=== PATIENT | female | born 1955 | race Caucasian/White ===

== ENCOUNTER 2017-07-19 09:27 | Day surgery (SDC) | payer OTHER, SELFPAY ==
[2017-07-19] VITALS (8 sets, daily range): BP systolic 121–139; BP diastolic 62–84; PULSE 54–87; RESP 16–18; TEMP 36.6–37.1; O2SAT 95–99
--- NOTE | 2017-07-19 09:51 | P.PN_ITS ---
[facility] Anesthesia Checklist - Patient Identification Patient Identification: Arm Band, Verbal (Name & ) - Structural Data Admitted From: Home Planned Operative Procedure/s: egd/colon Consent for Planned Operative Procedure(s) Verified: Yes Verified Documents: Surgical Consent - NPO Status Verified Time NPO: 00:00 - Chart Verification Results Verified: CBC, BMP - Additional verifications Patient : No Anesthesia Reactions: No Hx Blood Transfusions: No Blood Transfusion Reaction: No Cephalosporin Allergy: No Previous Colonoscopy: No - Cardiovascular Assessment Heart Sounds: S1 & S2 Pulse Strength: Strong Pulse Rhythm: Regular Peripheral Edema: No - Airway Assessment C-Spine Mobility Assessed: Yes TMJ Mobility Assessed: Yes Dentition: Good Dentition - Neurological Assessment Level of Consciousness: Awake, Alert, Appropriate Hx Seizures: No Numbness or tingling in extremities: No - Anesthesia Plan Anesthesia Risk discussed: Yes Anesthesia Plan: Verified ASA Class: III Anesthesia Type: MAC [facility] Anesthesia HX I have reviewed the patient's past medical history: Yes Medical History: Reports:: Anxiety, Gastroesophageal Reflux Disease(GERD), Heart Murmur, Hyperlipidemia, Hypertension (on meds) Denies:: Diabetes Mellitus Type 1, Diabetes Mellitus Type 2, Internal Pacemaker, Lung Disease, Seizures Other Surgeries: Yes: Appendectomy, Hysterectomy-Partial. No: Pacemaker Amputation: No Fractures: No *Family Hx:: Unable to obtain
--- NOTE | 2017-07-19 10:29 | SUR.OPER ---
Addendum entered by Ina Perez RN 07/19/17 10:31: CORRECTION; PT WILL BE PROCEEDING WITH COLONOSCOPY. Original Note: PT COULD NOT TOLERATE COLON PREP. PT WANTS TO PROCEED WITH EGD, BUT CANCEL COLONOSCOPY.
--- NOTE | 2017-07-19 10:31 | HMH.PROC ---
[facility] Procedure Note Procedure Note:: Upper Endoscopy Procedure Report: Esophagogastroduodenoscopy with cold biopsies Endoscopost: Joey Price II, MD Referring Physician: Syd Newman MD Date of Procedure: July 19, 2017 Equipment: Olympus GIF 180 standard upper endoscope Sedation: MAC sedation Indications: Mrs. Chisholm is a 62-year-old female with long-standing GERD/reflux and has been on pantoprazole. She underwent Venu fundoplication for a large hiatal hernia in September 2007 (Pietro Tineo MD). The patient has had several upper endoscopies in the past and her last endoscopy was on June 03, 2015 at which time she was found to have a recurrent 3 cm hiatal hernia with grade B reflux esophagitis and esophageal dysmotility. The patient does report epigastric abdominal burning discomfort, belching, bloating and early satiety. She reports no melena. Procedure: Prior to the procedure, a history and physical exam was performed, and patient's medications and allergies were reviewed. The risks, benefits and alternatives of the sedation and procedure were discussed with the patient. All questions were answered and informed consent was obtained. The patient was brought to the procedure room. Patient identification and proposed procedure were verified by the physician and the nurse. The patient was placed in a left lateral decubitus position and the scope was passed under direct vision. Throughout the procedure, the patient's blood pressure, pulse, and oxygen saturations were monitored continuously. The upper GI endoscopy was accomplished without difficulty. The patient tolerated the procedure well. Findings: The scope was passed directly into the upper esophagus and advanced to the third portion of the duodenum. The post bulbar duodenum and duodenal bulb were normal with normal mucosa and conniventes. The ampulla appeared normal. The scope was withdrawn through a normal duodenal bulb and pylorus into the stomach. There was bile reflux with mild linear erythema of the antrum and body consistent with mild linear reactive gastritis. There were a couple of small fundic gland polyps 1 of which was removed via cold biopsy. The remainder of the antrum, body and fundus of the stomach were grossly normal. Upon retroflexion there was some recurrence of 3 cm hiatal hernia with evidence of prior fundoplication. 2 biopsies were taken in the antrum and along the lesser curvature for histology. The scope was then withdrawn into the esophagus. There was still remaining with 1 very short tongue of salmon colored mucosa that was biopsied to rule out Bass's esophagus. There was no reflux esophagitis. There were tertiary contractions and evidence of moderate esophageal dysmotility. The remainder of the esophageal mucosa was normal. Impression: 1. Nonerosive GERD with moderate esophageal dysmotility and recurrent 3 cm hiatal hernia (evidence of prior fundoplication) 2. Bile reflux with mild linear reactive gastritis 3. 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 I would switch to omeprazole 40 Milias p.o. daily because of the possibility of tachyphylaxis. I would also add a promotility medication possibly fiber bowel regimen. Follow up the biopsies. I will proceed with screening/surveillance colonoscopy.
--- NOTE | 2017-07-19 10:42 | P.PCN_ITS ---
[facility] Procedure Note Procedure Note:: Upper Endoscopy Procedure Report: Esophagogastroduodenoscopy with cold biopsies Endoscopost: Joey Price II, MD Referring Physician: Syd Newman MD Date of Procedure: July 19, 2017 Equipment: Olympus GIF 180 standard upper endoscope Sedation: MAC sedation Indications: Mrs. Chisholm is a 62-year-old female with long-standing GERD/ reflux and has been on pantoprazole. She underwent Venu fundoplication for a large hiatal hernia in September 2007 (Pietro Tineo MD). The patient has had several upper endoscopies in the past and her last endoscopy was on May at which time she was found to have a recurrent 3 cm hiatal hernia with grade B reflux esophagitis and esophageal dysmotility. The patient does report epigastric abdominal burning discomfort, belching, bloating and early satiety. She reports no melena. Procedure: Prior to the procedure, a history and physical exam was performed, and patient' s medications and allergies were reviewed. The risks, benefits and alternatives of the sedation and procedure were discussed with the patient. All questions were answered and informed consent was obtained. The patient was brought to the procedure room. Patient identification and proposed procedure were verified by the physician and the nurse. The patient was placed in a left lateral decubitus position and the scope was passed under direct vision. Throughout the procedure, the patient's blood pressure, pulse, and oxygen saturations were monitored continuously. The upper GI endoscopy was accomplished without difficulty. The patient tolerated the procedure well. Findings: The scope was passed directly into the upper esophagus and advanced to the third portion of the duodenum. The post bulbar duodenum and duodenal bulb were normal with normal mucosa and conniventes. The ampulla appeared normal. The scope was withdrawn through a normal duodenal bulb and pylorus into the stomach. There was bile reflux with mild linear erythema of the antrum and body consistent with mild linear reactive gastritis. There were a couple of small fundic gland polyps 1 of which was removed via cold biopsy. The remainder of the antrum, body and fundus of the stomach were grossly normal. Upon retroflexion there was some recurrence of 3 cm hiatal hernia with evidence of prior fundoplication. 2 biopsies were taken in the antrum and along the lesser curvature for histology. The scope was then withdrawn into the esophagus. There was still remaining with 1 very short tongue of salmon colored mucosa that was biopsied to rule out Bass's esophagus. There was no reflux esophagitis. There were tertiary contractions and evidence of moderate esophageal dysmotility. The remainder of the esophageal mucosa was normal. Impression: 1. Nonerosive GERD with moderate esophageal dysmotility and recurrent 3 cm hiatal hernia (evidence of prior fundoplication) 2. Bile reflux with mild linear reactive gastritis 3. 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 I would switch to omeprazole 40 Milias p.o. daily because of the possibility of tachyphylaxis. I would also add a promotility medication possibly fiber bowel regimen. Follow up the biopsies. I will proceed with screening/surveillance colonoscopy.
--- NOTE | 2017-07-19 11:14 | P.PCN_ITS ---
[facility] Procedure Note Procedure Note:: Colonoscopy Procedure Report: Colonoscopy with submucosal injection of Eleview, snare cautery and cold snare polypectomy and Endo Clip placement Endoscopist: Joey Price II, MD Referring physician: Syd Newman M.D. Date of Procedure: July 19, 2017 Equipment: Olympus 180 variable stiffness pediatric colonoscope Sedation: MAC sedation Indication: Mrs. Chisholm is a 62-year-old female who is here for follow-up screening/surveillance colonoscopy. The patient did have a colonoscopy in 2006 showing 3 small adenomatous colon polyps which were removed. Her last colonoscopy in May 2011 revealed a splenic flexure polyp that was sessile and Alicja ink was utilized. This was measured at 9 mm and was a tubular adenoma. The patient does have a history of dyspepsia and reflux. She reports no abdominal pain, weight loss, change in her bowel habits or rectal bleeding. She reports no family history of colon cancer. Procedure: Prior to the procedure, a history and physical exam was performed, and patient' s medications and allergies were reviewed. The risks, benefits and alternatives of the sedation and procedure were discussed with the patient. All questions were answered and informed consent was obtained. The patient was brought to the procedure room. Patient identification and proposed procedure were verified by the physician and the nurse. The patient was placed in a left lateral decubitus position and the scope was passed under direct vision. Throughout the procedure, the patient's blood pressure, pulse, and oxygen saturations were monitored continuously. The colonoscopy was accomplished without difficulty. The patient tolerated the procedure well. Findings: On digital rectal examination there was normal rectal tone. There were no external hemorrhoids. The colonoscope was introduced through the anal canal to the rectum and advanced to the cecum. The ileocecal valve and appendiceal orifice were identified. The scope was advanced a short distance into the ileum which appeared grossly normal. The scope was then withdrawn into the colon. The cecum, ascending and transverse colon and mucosa were grossly normal. In the transverse colon near the splenic flexure was a sessile 19-20 mm polyp that was granular and laterally spreading sessile polyp. This was raised using Eleview at approximately 10 cc. Next, snare cautery was utilized to remove the vast majority and then the Exacto snare was used to remove the remaining in piecemeal. The post polypectomy site was then closed using 2 endoclips. There was one additional sigmoid polyp removed via cold snare polypectomy. There were a few mildly scattered scattered diverticuli throughout the descending and sigmoid colon (LEFT colon). The rectum itself was normal. Upon retroflexion within the rectum there were grade 1 internal hemorrhoids. Impression: 1. Sessile 20 mm laterally spreading granular transverse colon polyp status post removal 2. Diminutive sigmoid polyp 3. Mild left-sided diverticulosis 4. Grade 1 internal hemorrhoids Plan: I will follow up the polyp histology and recommend repeat screening/ surveillance colonoscopy again in 2-3 years based on the histology. I would encourage fiber supplementation on a long-term daily maintenance basis.
[2017-07-19 12:48] LABS: Basophils # 0.1 K/mm3 (0-0.2); Basophils % 1.1 % (0.1-2.0); Eosinophils # 0.3 K/mm3 (0.0-0.4); Eosinophils % 3.3 % (0.1-12.0); Hematocrit 40.1 % (37.0-47.0); Lymphocytes # 1.9 K/mm3 (0.7-4.5); Lymphocytes % 25.2 K/mm3 (10-50); Mean Corpuscular HGB Conc 32.4 g/dL (31.8-35.4); Mean Corpuscular Hemoglobin 26.6 pg (27.0-31.2); Mean Corpuscular Volume 82.1 fl (81-99); Mean Platelet Volume 7.6 fl (7.4-10.4); Monocytes # 0.4 K/mm3 (0.1-1.0); Monocytes % 4.6 % (1.7-9.3); Neutrophils # 5.1 K/mm3 (1.8-7.8); Neutrophils % 65.8 % (37.0-80.0); Platelet Count 396 K/mm3 (142-424); Red Blood Count 4.88 M/mm3 (4.20-5.40); Red Cell Distribution Width 14.7 % (11.5-17.5); White Blood Count 7.7 K/mm3 (4.8-10.8)
[2017-07-19 12:56] LABS: Ammonia 6 umol/L (19-54)
[2017-07-19 13:10] LABS: Alanine Aminotransferase 33 U/L (12-78); Albumin Level 3.7 gm/dL (3.4-5.0); Albumin/Globulin Ratio 0.9 (1.1-1.8); Alkaline Phosphatase 93 U/L (46-116); Anion Gap 14.1 mEq/L (5-15); Aspartate Amino Transferase 20 U/L (15-37); Bilirubin,Total 0.6 mg/dL (0.2-1.0); Blood Urea Nitrogen 5 mg/dL (7-18); Calcium 8.6 mg/dL (8.5-10.1); Carbon Dioxide 28 mmol/L (21.0-32.0); Chloride 106 mmol/L (98-107); Creatinine Clearance Estimated 73 mL/min (0-300); Creatinine,Serum 0.58 mg/dL (0.55-1.02); Estimated Glomerular Filt Rate 105 ml/min (>60); Ferritin 60 ng/mL (8-388); GFR (African American) 127 ML/MIN (>60); Globulin 3.9 gm/dl (1.3-3.2); Glucose 91 mg/dL (74-106); Potassium 3.1 mmoL/L (3.5-5.1); Sodium 145 mmol/L (136-145); Total Protein,Serum 7.6 gm/dL (6.4-8.2)
[2017-07-20 06:14] LABS: Iron 51 ug/dL (27-139); UIBC 278 ug/dL (118-369)
[2017-07-20 07:17] LABS: Hep A Ab, IgM Negative (Negative); Hep B Core Ab, Total Negative (Negative); Hepatitis B Core Antibody IgM Negative (Negative); Hepatitis B Surface Antigen Negative (Negative)
[2017-07-20 08:22] LABS: Alpha-1-Antitrypsin 128 mg/dL (90-200); Immunoglobulin A, Qn 607 mg/dL (87-352); Immunoglobulin G, Qn 736 mg/dL (700-1600)
[2017-07-20 10:55] LABS: Iron Saturation 16 % (15-55)
[2017-07-20 10:56] LABS: Hep A Ab, Total Negative (Negative); Hep B Surface Ab, Qual Non Reactive (.); Hepatitis C Antibody 0.1 s/co ratio (0.0-0.9); Immunoglobulin M, Qn 142 mg/dL (26-217)
[2017-07-20 16:17] LABS: Actin (Smooth Muscle) Antibody 6 Units (0-19); Angiotensin Converting Enzyme 27 U/L (14-82); Mitochondrial (M2) Antibody <20.0 Units (0.0-20.0)
[2017-07-20 19:19] LABS: Antinuclear Antibodies, IFA Positive (.)
[2017-07-21 06:20] LABS: ALT (SGPT) P5P 21 IU/L (0-40); Alpha 2-Macroglobulins, Qn 169 mg/dL (110-276); Apolipoprotein A-1 149 mg/dL (116-209); Bilirubin, Total 0.4 mg/dL (0.0-1.2); Fibrosis Score 0.11 (0.00-0.21); GGT 22 IU/L (0-60); Haptoglobin 205 mg/dL (34-200); Necroinflammat Activity Grade A0-No activity (.); Necroinflammat Activity Score 0.07 (0.00-0.17)
== END 2017-07-19 12:40 | disposition home or self-care (01) ==
LOC: OUTP 09:31
PROVIDERS: PCP Internal Medicine; Visit Provider Internal Medicine Gastroenterology
PROC: 0DJ08ZZ Inspection of Upper Intestinal Tract, Via Natural or Artificial Opening Endoscopic (ICD-10-PCS; CPT 43235; principal; 2017-07-19 10:30)
DX: Z12.11 Encounter for screening for malignant neoplasm of colon (principal); K64.0 First degree hemorrhoids; K57.30 Diverticulosis of large intestine without perforation or abscess without bleeding; K63.5 Polyp of colon; K21.9 Gastro-esophageal reflux disease without esophagitis; K22.4 Dyskinesia of esophagus; K44.9 Diaphragmatic hernia without obstruction or gangrene; K29.70 Gastritis, unspecified, without bleeding; K31.7 Polyp of stomach and duodenum; Z87.19 Personal history of other diseases of the digestive system; Z86.010 Personal history of colon polyps
CPT/HCPCS: 43239; 45381; 45380; 36415; 80053; 80074; 82104; 82140; 82164; 82728; 82784; 83550; 85025; 86038; 86255; 86256; 86704; 86706; 86708

== ENCOUNTER → 2020-08-03 11:58 | Outpatient (CLI) | payer MEDICARE, SELFPAY ==
[2020-08-03 14:15] LABS: Coronavirus 19 IgG Antibody Positive (Negative); Coronavirus 19 IgM Antibody Negative (Negative)
== END ==
PROVIDERS: Visit Provider Internal Medicine Gastroenterology
DX: Z01.818 Encounter for other preprocedural examination (principal); Z20.822 Contact with and (suspected) exposure to COVID-19; Z86.16 Personal history of COVID-19; Z12.11 Encounter for screening for malignant neoplasm of colon
CPT/HCPCS: 36415; 86328

== ENCOUNTER 2020-08-05 06:58 | Day surgery (SDC) | payer MEDICARE, OTHER, SELFPAY ==
[2020-08-05] VITALS (7 sets, daily range): BP systolic 104–144; BP diastolic 62–86; PULSE 53–73; RESP 18; TEMP 36.4–36.9; O2SAT 93–98
--- NOTE | 2020-08-05 08:20 | HMH.PROC ---
[facility] Procedure Note Procedure Note:: Colonoscopy Procedure Report: Colonoscopy with cold snare polypectomy Endoscopist: Joey Price II, MD Referring physician: Syd Newman M.D. Date of Procedure: August 05, 2020 Equipment: Olympus 180 variable stiffness pediatric colonoscope Sedation: MAC sedation Indication: Mrs. Chisholm is a 65-year-old female who is here for follow-up screening/surveillance colonoscopy secondary to a personal history of colon polyps. The patient's last colonoscopy was June 2017 at which time she had a 20 mm laterally spreading granular tubular adenoma. I did recommend 2-year surveillance interval. The patient does have some history of functional dyspepsia. She has had intermittent chronic loose stools. She reports no rectal bleeding, abdominal pain, weight loss or change in bowel habits. She reports no family history of colon cancer. Procedure: Prior to the procedure, a history and physical exam was performed, and patient's medications and allergies were reviewed. The risks, benefits and alternatives of the sedation and procedure were discussed with the patient. All questions were answered and informed consent was obtained. The patient was brought to the procedure room. Patient identification and proposed procedure were verified by the physician and the nurse. The patient was placed in a left lateral decubitus position and the scope was passed under direct vision. Throughout the procedure, the patient's blood pressure, pulse, and oxygen saturations were monitored continuously. The colonoscopy was accomplished without difficulty. The patient tolerated the procedure well. Findings: On digital rectal examination there was normal rectal tone. There were no external hemorrhoids. The colonoscope was introduced through the anal canal to the rectum and advanced to the cecum. The ileocecal valve and appendiceal orifice were identified. The scope was advanced a short distance into the ileum which appeared grossly normal. The scope was then withdrawn into the colon. The cecum, ascending and transverse colon and mucosa were grossly normal. At the splenic flexure (in the descending colon) there was a 7 to 8 mm residual polyp with fibrosis in this region from prior polypectomy. This polyp was removed via cold snare polypectomy. There was a second 5 mm polyp in the sigmoid colon removed via cold snare polypectomy. There were very mildly scattered diverticuli throughout the descending and sigmoid colon (LEFT colon). The rectum itself was normal. Upon retroflexion within the rectum there were grade 1-2 internal hemorrhoids. The preparation was excellent throughout with Cornelius Preparation Score of 9. The cecal time was 12 minutes. Impression: 1. Colonic polyps x2 2. Mild left-sided diverticulosis 3. Grade 1-2 internal hemorrhoids Plan: Based upon the patient's history of advanced adenomatous polyps, I would continue surveillance at a 5-year interval. I would encourage bulk fiber supplementation (FiberCon 2 tablets p.o. twice daily).
--- NOTE | 2020-08-05 09:00 | P.PN_ITS ---
[facility] Anesthesia Checklist - Patient Identification Patient Identification: Arm Band - Structural Data Admitted From: Home Planned Operative Procedure/s: colonoscopy Consent for Planned Operative Procedure(s) Verified: Yes Verified Documents: Surgical Consent, History and Physical - NPO Status Verified Time NPO: 00:00 - Additional verifications Anesthesia Reactions: No Hx Blood Transfusions: No Blood Transfusion Reaction: No - Airway Assessment C-Spine Mobility Assessed: Yes (mp2) TMJ Mobility Assessed: Yes Dentition: Good Dentition - Neurological Assessment Level of Consciousness: Awake, Alert - Anesthesia Plan Anesthesia Risk discussed: Yes Anesthesia Plan: Verified ASA Class: III Anesthesia Type: MAC [facility] History I have reviewed the patient's past medical history: Yes Medical History: Reports:: Anxiety, Gastroesophageal Reflux Disease(GERD), Heart Murmur, Hyperlipidemia, Hypertension Denies:: Cancer, Diabetes Mellitus Type 1, Diabetes Mellitus Type 2, Internal Pacemaker, Lung Disease, MRSA, Seizures *Have you ever received a pneumonia vaccine?: Yes *Have you received a flu vaccine this season?: Yes Other Medical History: Denies: Blood Transfusion Reaction Anesthesia experience/problems:: nac Other Surgeries: Yes: Appendectomy, Cardiac Catheterization, Hysterectomy- Partial. No: Pacemaker Amputation: No Fractures: No - *Social History Last grade of school completed: Some college Smoking Status: Never smoker Alcohol Intake: current Alcohol Intake Frequency:: a few times a month Substance Use Type: denies use *Occupational Status:: employed Housing: house Household Members: spouse *Travel in the last 8 weeks: None - Psychiatric History Pschychiatric History:: Reports:: Anxiety Family Hx:: Unable to obtain
== END 2020-08-05 09:25 | disposition home or self-care (01) ==
LOC: OUTP 07:02
PROVIDERS: PCP Internal Medicine; Visit Provider Internal Medicine Gastroenterology
PROC: 0DJD8ZZ Inspection of Lower Intestinal Tract, Via Natural or Artificial Opening Endoscopic (ICD-10-PCS; CPT 45378; principal; 2020-08-05 08:00)
DX: Z12.11 Encounter for screening for malignant neoplasm of colon (principal); K63.5 Polyp of colon; K57.30 Diverticulosis of large intestine without perforation or abscess without bleeding; K64.0 First degree hemorrhoids; I10 Essential (primary) hypertension; E78.5 Hyperlipidemia, unspecified; K21.9 Gastro-esophageal reflux disease without esophagitis; Z80.9 Family history of malignant neoplasm, unspecified; Z82.49 Family history of ischemic heart disease and other diseases of the circulatory system; Z88.2 Allergy status to sulfonamides
CPT/HCPCS: 45385; 88305

== ENCOUNTER 2022-06-19 11:48 | Emergency (ER) | payer MEDICARE, OTHER, SELFPAY ==
[2022-06-19 14:07] VITALS: BP 138/94; PULSE 87; RESP 16; TEMP 36.8; O2SAT 97; BMI 27.8
--- NOTE | 2022-06-19 14:11 | EXP.UTC ---
Discharge Plan Disposition Patient Disposition: Home, Self-Care Condition: Good Prescriptions Prescriptions: New ondansetron 4 mg tablet,disintegrating 4 mg PO Q8H PRN (Reason: nausea and vomiting) Qty: 10 0RF No Action atorvastatin 40 MG tablet 40 mg PO HS isosorbide mononitrate 120 MG tablet extended release 24 hr 30 mg PO DAILY amlodipine [Norvasc] 10 MG tablet 10 mg PO HS aspirin 81 MG tablet,chewable 81 mg PO DAILY escitalopram oxalate 20 MG tablet 20 mg PO DAILY calcium carbonate-vitamin D3 1 EACH tablet 1 ea PO DAILY omeprazole 40 MG capsule,delayed release(DR/EC) 40 mg PO DAILY metoclopramide HCl 5 MG tablet 5 mg PO DAILY Referrals Follow up/Referrals: Syd Newman [Primary Care Provider] - See instructions Activity Restrictions/Add. Instructions Additional Instructions/Restrictions: Drink extra fluids with and between meals. If you have difficulty drinking, try very small amounts of water or suck on ice chips. ? Avoid fruit juices, as these do not replace minerals and can actually increase diarrhea. ? Children and adults can use sports drinks to replenish electrolytes. Younger children and infants should use products formulated for children, like oral rehydration solutions. ? Eat food in small amounts and let your stomach recover. ? Get lots of rest. You may feel tired or weak. ? No greasy or fried foods for the next 24-48 hours BRAT diet Bananas Rice Apples and [place] ? Make sure to drink plenty of liquids ? Return if needed ? Straight to ER if any life threatening symptoms ? Zofran as prescribed ? Follow up with family doctor in the next 48-72 hours if no improvement or any worsening of symptoms Clinical Impressions Clinical Impression: Nausea and vomiting Qualifiers: Vomiting type: unspecified Qualified Code(s): R11.2 - Nausea with vomiting, unspecified Instructions Patient Instructions: Ondansetron, Nausea and Vomiting-Adult, Diarrhea Discharge ED Provider: Walker Bell [facility] HPI General Stated complaint: Vomiting,headache Mode of Arrival: Ambulatory Source of Information: Patient Limitations: No Limitations Time Seen by Provider: 06/19/22 14:11 Description of Symptoms (Recalled from Triage Doc. by RN): ot comes in with c/o vomitting diarrhea headache that began last night. HEENT Symptoms (Recalled from RN notes): Yes Resp Symptoms (Recalled from RN notes): No Skin Symptoms (Recalled from RN notes): No MS Symptoms (Recalled from RN notes): No Functional Status (Recalled from RN notes): n/a History of Present Illness Provider Complaint: Patient states that she thinks she either has stomach bug or food poisoning States that last night she eat some left over vegetables and then she started with vomiting and diarrhea State that diarrhea has got a little better but she has continued to have vomiting States that she has a little headache but gets that sometimes when she vomits States that has hx of hernia and they dont want her vomiting so she came in to get something to stop the vomiting before she started having issues with that Related Data Home Medications Medication Instructions Recorded Confirmed amlodipine 10 mg tablet (Norvasc) 10 mg PO HS blood pressure 07/16/17 08/05/20 aspirin 81 mg chewable tablet 81 mg PO DAILY heart healthy 07/16/17 08/05/20 atorvastatin 40 mg tablet 40 mg PO HS Cholesterol 07/16/17 08/05/20 calcium carbonate 1,000 mg-vitamin 1 ea PO DAILY Supplement 07/16/17 08/05/20 D3 20 mcg (800 unit) tablet escitalopram oxalate 20 mg tablet 20 mg PO DAILY Anxiety 07/16/17 08/05/20 isosorbide mononitrate 120 mg 30 mg PO DAILY blood pressure 07/16/17 08/05/20 tablet,extended release 24 hr metoclopramide HCl 5 mg tablet 5 mg PO DAILY Nausea & vomiting 07/30/20 08/05/20 omeprazole 40 mg capsule,delayed 40 mg PO DAILY GERD 07/30/20 08/05/20 r
[2022-06-19 14:23] LABS: UTC Influenza A Antigen Negative (Negative); UTC Influenza B Antigen Negative (Negative)
[2022-06-19 15:23] VITALS: BP 138/94; PULSE 87; RESP 16; TEMP 36.8
== END 2022-06-19 15:25 | disposition home or self-care (01) ==
PROVIDERS: Nurse Practitioner; Emergency Provider Emergency Medicine; PCP Internal Medicine
DX: R11.2 Nausea with vomiting, unspecified (principal)
CPT/HCPCS: 87804; 99212; G0463

== ENCOUNTER 2022-10-16 15:25 | Emergency (ER) | payer MEDICARE, OTHER, SELFPAY ==
[2022-10-16 15:26] VITALS: BP 139/86; PULSE 69; RESP 17; TEMP 37.1; O2SAT 98; BMI 29.0
--- NOTE | 2022-10-16 15:48 | EXP.UTC ---
Discharge Plan Disposition Patient Disposition: Home, Self-Care Condition: Good Prescriptions Prescriptions: New azithromycin [Zithromax Z-Neri] 250 mg tablet See Rx Instructions .ROUTE .COMPLEX 5 Days Qty: 6 0RF Rx Instructions: For 250 mg dose pack: take 500 mg today (day 1), then 250 mg for 4 days (days 2-5) methylprednisolone [Medrol (Neri)] 4 mg tablets,dose pack See Rx Instructions .Route .COMPLEX 6 Days Qty: 21 0RF Rx Instructions: taper pack; No Action atorvastatin 40 MG tablet 40 mg PO HS isosorbide mononitrate 120 MG tablet extended release 24 hr 30 mg PO DAILY amlodipine [Norvasc] 10 MG tablet 10 mg PO HS aspirin 81 MG tablet,chewable 81 mg PO DAILY escitalopram oxalate 20 MG tablet 20 mg PO DAILY calcium carbonate-vitamin D3 1 EACH tablet 1 ea PO DAILY omeprazole 40 MG capsule,delayed release(DR/EC) 40 mg PO DAILY Referrals Follow up/Referrals: Syd Newman [Primary Care Provider] - See instructions Activity Restrictions/Add. Instructions Additional Instructions/Restrictions: *Monitor Temp, Over the counter Motrin or Tylenol as directed/as needed Tylenol every 4 hours and Motrin every 6 hours (as long as your family doctor has told you that you can take it) for fever or pain. and straight to ER if unable to lower temp less than 101.0 after medication given *Warm salt water gargles may help to soothe the throat *Throat Lozenges? *Warm fluids like tea with honey may help to soothe the throat? *Sleep elevated *Humidifier/Vaporizer Take medication as prescribed Your throat swab was sent for culture. Those results are typically sent to your primary care. Be sure to follow up in 2-3 days with your family doctor/primary care physician if no improvement so they can review those result and treat if necessary. If you don?t have a primary care doctor, I recommend you get one but in the mean time, you will have to return to a walk in clinic Follow up IMMEDIATELY for new or worsening symptoms or no Noticeable improvement over the next 48-72 hours. 911 for difficulty breathing or swallowing Clinical Impressions Clinical Impression: Sinusitis Instructions Patient Instructions: DI for Sinusitis, Sinusitis Discharge ED Provider: Richelle York [facility] [place] HPI General Stated complaint: sore throat Mode of Arrival: Ambulatory Source of Information: Patient Limitations: No Limitations Time Seen by Provider: 10/16/22 15:48 Description of Symptoms (Recalled from Triage Doc. by RN): sore throat, congestion, KEBEDE, bilateral ear pain HEENT Symptoms (Recalled from RN notes): Yes Resp Symptoms (Recalled from RN notes): No Skin Symptoms (Recalled from RN notes): No MS Symptoms (Recalled from RN notes): No Functional Status (Recalled from RN notes): n/a History of Present Illness Provider Complaint: Patient states that she has been having sinus pain and pressure for close to a week, States that now she is having bilateral ear pain, and sore throat also States that her throat was hurting pretty bad and she was worried that she may have strep throat so she came in to get checked Related Data Home Medications Medication Instructions Recorded Confirmed amlodipine 10 mg tablet (Norvasc) 10 mg PO HS blood pressure 07/16/17 10/16/22 aspirin 81 mg chewable tablet 81 mg PO DAILY heart healthy 07/16/17 10/16/22 atorvastatin 40 mg tablet 40 mg PO HS Cholesterol 07/16/17 10/16/22 calcium carbonate 1,000 mg-vitamin 1 ea PO DAILY Supplement 07/16/17 10/16/22 D3 20 mcg (800 unit) tablet escitalopram oxalate 20 mg tablet 20 mg PO DAILY Anxiety 07/16/17 10/16/22 isosorbide mononitrate 120 mg 30 mg PO DAILY blood pressure 07/16/17 10/16/22 tablet,extended release 24 hr omeprazole 40 mg capsule,delayed 40 mg PO DAILY GERD 07/30/20 10/16/22 release Previous Rx's Medication Instructions Recorded azithromycin 250 mg tablet See Rx In
[2022-10-16 15:59] LABS: UTC Strep Screen (Rapid) Negative (Negative)
[2022-10-16 16:16] VITALS: BP 139/86; PULSE 69; RESP 17; TEMP 37.1; O2SAT 97
== END 2022-10-16 16:17 | disposition home or self-care (01) ==
PROVIDERS: Emergency Provider Nurse Practitioner; PCP Internal Medicine
DX: J01.90 Acute sinusitis, unspecified (principal); H92.03 Otalgia, bilateral; J02.9 Acute pharyngitis, unspecified
CPT/HCPCS: 87880; 99212; 99214; G0463

== ENCOUNTER 2024-07-18 16:27 | Emergency (ER) | payer MEDICARE, OTHER, SELFPAY ==
[2024-07-18 16:28] VITALS: BP 159/90; PULSE 76; RESP 16; TEMP 36.6; O2SAT 97; BMI 28.3
[2024-07-18 16:34] VITALS: BP 159/90; PULSE 76; O2SAT 95
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
--- NOTE | 2024-07-18 16:51 | PC.NURSE ---
pt gone to ct via stretcher
--- NOTE | 2024-07-18 16:51 | PC.NURSE ---
PT TO CT
--- NOTE | 2024-07-18 16:59 | PC.NURSE ---
pt arrived back to room from ct
--- NOTE | 2024-07-18 17:01 | PC.NURSE ---
PT RETURNED FROM CT
--- NOTE | 2024-07-18 17:20 | PC.NURSE ---
DR BEE AT BEDSIDE TO UPDATE PT AND FAMILY
[2024-07-18 17:30] VITALS: BP 165/109; PULSE 59; O2SAT 96
[2024-07-18] MEDS: BUTALB/ACETAMINOPHEN/CAFFEINE 50MG/325MG/40MG TAB 2 EACH PO (17:31)
[2024-07-18] MEDS: METOCLOPRAMIDE 5MG TABLET 5 MG PO (17:31)
[2024-07-18] MEDS: ONDANSETRON 4MG ODT 4 MG SL (17:33)
[2024-07-18 18:00] VITALS: BP 168/86; PULSE 55; O2SAT 97
[2024-07-18 18:31] VITALS: BP 155/79; PULSE 57; O2SAT 93
--- NOTE | 2024-07-18 18:33 | PC.NURSE ---
PT REPORTS SHE IS UTD ON TDAP, DECLINES AT THIS TIME
[2024-07-18 18:38] VITALS: BP 155/79; PULSE 56; RESP 16; TEMP 36.6; O2SAT 99
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
== END 2024-07-18 18:40 | disposition home or self-care (01) ==
PROVIDERS: Emergency Provider Emergency Medicine; PCP Internal Medicine
DX: S01.01XA Laceration without foreign body of scalp, initial encounter (principal); S06.0XAA Concussion with loss of consciousness status unknown, initial encounter; X58.XXXA Exposure to other specified factors, initial encounter; R91.1 Solitary pulmonary nodule; R42 Dizziness and giddiness; R11.0 Nausea; Z23 Encounter for immunization
CPT/HCPCS: 12001; 70450; 72125; 90471; 90714; 90715; 99285; Q0162

== ENCOUNTER 2025-05-24 13:39 | Outpatient (CLI) | payer MEDICARE, OTHER, SELFPAY ==
[2025-05-24 20:48] LABS: Coronavirus 19, PCR Not Detected (NotDetected); Influenza A, PCR Not Detected (NotDetected); Influenza B, PCR Not Detected (NotDetected)
--- OUTSIDE RECORDS SUMMARY | 2025-05-27 13:42 | XMS_ITS | Clinical Summary ---
Author Organization Healthcare Address [address] [place] [address] Care Team Providers Care Pull Over Name Role Phone Kwesi Powell MD Primary Care Provider [phone] Immunizations Immunization Administration Dates Next Due Influenza, seasonal, injectable 06/20/2012 Family History Medical History Relation Name Comments CABG Brother 1 Coronary artery disease Brother 2 Heart attack Brother 3 CABG Father Coronary artery disease Father Heart attack Father Atrial fibrillation Mother Relation Name Status Comments Brother 1 Brother 2 Brother 3 Father Mother Social History Tobacco Use Types Packs/Day Years Used Date Smoking Tobacco: Never Alcohol Use Standard Drinks/Week Comments No 0 (1 standard drink = 0.6 oz pur e alcohol) Comments Unknown Sex and Gender Information Value Date Recorded Sex Assigned at Not on file Legal Sex Female 6:00 PM EDT Gender Identity Not on file Sexual Orientation Not on file Last Filed Vital Signs Vital Sign Reading Time Taken Comments Blood Pressure - - Pulse - - Temperature - - Respiratory Rate - - Oxygen Saturation - - Inhaled Oxygen Concentration - - Weight 79.8 kg (175 lb 14.8 oz) 06/10/2016 1:29 PM EST Height 162.6 cm (5' 4 ) 06/10/2016 1:29 PM EST Body Mass Index 30.2 06/10/2016 1:29 PM EST Plan of Treatment Not on file Care Teams Pull Over Relationship Specialty Start Date End Date Kwesi Powell MD [address] [place] [id number] PCP - General 11/01/20
--- OUTSIDE RECORDS SUMMARY | 2025-05-27 13:42 | XMS_ITS ---
Author Organization Unknown ENCOUNTERS Encounter Performer Location Date Diagnosis Diagnosis Status Pre Admit [facility] [address] [place] [address] [id number] Emergency [facility] [address] [place] [address] [id number] [facility] Richelle [facility] [place] [address] [place] [address] [phone] [facility] Walker [facility] [place] [address] [place] [address] [phone] [facility] *Note: Encounters from your own facility or health system may be excluded. Allergies, Adverse Reactions, Alerts Allergen Type Severity Identification Date ciprofloxacin drug allergy 0 20170719 Sulfa (Sulfonamide Antibiotics) drug allergy 0 [id number] amoxicillin drug allergy 1 [id number] procaine drug allergy 0 [id number] Medications Name Date Quantity Days Supplied GPI Number
--- OUTSIDE RECORDS SUMMARY | 2025-05-27 13:42 | XMS_ITS | Data Portability ---
Author Organization MARIANA Parminder Prather c[facility] CLOSED Address [address] [facility] [address] [place] [address] Care Team Providers Care Pad Machine Feeder Name Role Phone SRI NEWMAN Primary Care Provider DAVID HANKINS Machine Binder Stripper Assessment No assessment recorded. Plan of Treatment Reminders Order Date Submit Date Provider Last Modified By Organization Details Last Modified Time Details Appointments MEDICARE WELLNESS VISIT 2025 02:00P Luis M NEWMAN MD Not available Not available Not available RECHECK 2025 01:30P Luis M HANKINS MACHINE III COREMAKER Not available Not available Not available Lab glycohemo globin, total, blood 2024 026 [facility], [address] [place] [address], [address], 01/01/2025 13:32:08 magnesium , QN, serum or plasma 2024 026 [facility], [address] [place] [address], [address], 01/01/2025 13:32:08 CMP, serum or plasma 2024 026 [facility], [address] [place] [address], [address], 01/01/2025 13:32:08 CBC w/ auto diff 2024 026 [facility], [address] [place] [address], [address], 01/01/2025 13:32:08 lipid panel, serum 2024 026 [facility], [address] [place] [address], [address], 01/01/2025 13:32:08 TSH, serum, reflex free T4 2024 026 [facility], [address] [place] [address], [address], 01/01/2025 13:32:08 Referral None recorded. Procedures None recorded. Surgeries None recorded. Imaging NM, myocardia l perfusion scan [address] Radiology Cardiology [facility], [address] [place] [address] , [place], [address], 08/01/2024 20:27:41 US, doppler echocardi ogram, w/ color flow [address], [address] [place] [address] , [place], [address], 08/01/2024 20:27:41 Medication Orders None recorded. Patient TargetsNo targets recorded. Patient Instructions Encounter Date Encounter Id Patient Instructions Last Modified By Organization Details Last Modified Time 07/27/2024 [id number] body mass index: care instructions Not available 08/01/2024 20:27:41 high blood pressure: care instructions Not available 08/01/2024 20:27:41 high cholesterol : care instructions Not available 08/01/2024 20:27:41 f/u 6 mo Not available 2024 20:27:50 11/16/2024 [id number] body mass index: care instructions Not available 11/16/2024 14:21:38 high blood pressure: care instructions Not available 11/16/2024 14:21:38 high cholesterol : care instructions Not available 11/16/2024 14:21:38 01/01/2025 [id number] labs reviewed scripts reviewed risks/benefits reviewed high risk meds reviewed continue current medication continue to monitor labs rtc 6 months with labs MWV and prn dbeiting Not available 01/01/2025 09:04:48 Reason for Referral None Reported. Results Created Date Observation Date Name Description Value Unit Range Abnormal Flag Note LastModifiedBy Organization Detail LastModifiedTime 12/30/1912/29/2024 GLYCO HEMOG LOBIN A1C glyco HGB A1C 6.3 % 0.0-5. 6 high Not Available [facility] [address] [place] [address], [address], 12/29/2024 12:35:18 12/30/1912/29/2024 GLYCO HEMOG LOBIN A1C estimated avg. glucose 134 mg/dL _(andrew c) normal A1c value s betwe en 5.7% to 6.4% indic ate predi abete s. Resul ts 6.5% or great er is diagn ostic of diabe wendy. Ameri can Diabe wendy Ass[employer] iatio n (diab etes. org) Not Available [facility] [address] [place] [address], [address], 12/29/2024 12:35:18 12/30/19 25 12/29/2024 LIPID PROFI LE HDL cholesterol 48 mg/dL 50-242 low Not Available [facility] [address] [place], [address], 12/29/2024 12:48:15 12/30/1912/29/2024 LIPID PROFI LE triglyceride s 114 mg/dL 0-149 normal TRIGL YCERI DE RANGE S HUSSAIN L: < 150 BORDE RLINE HIGH: 150 - 199 HIGH: 200 - 499 VERY HIGH: > OR = 500 Not Available [facility] [address] [place] [address], [address], 12/29/2024 12:48:15 12/30/19 25 12/29/2024 LIPID PROFI LE cholesterol 220 mg/dL 0-199 high LAN STERO L (TOTA L) RANGE S CLAUDY ABLE: < 200 BORDE RLINE : 200 - 239 HIGHE R RISK: > 239 Not Available [facility] [address] [place] [address], [address], 12/29/2024 12:48:15 12/30/19 25 12/29/2024 LIPID PROFI LE LDL cholesterol 149 mg/dL _(andrew c) 0-99 high LDL LAN STERO L RANGE S OPTIM AL: < 100 NEAR/ ABOVE OPTIM AL: 100 - 129 BORDE RLINE HIGH: 130 - 159 HIGH: 160 - 189 VERY HIGH: > OR = 190 Not Available [facility] [address] [place] [address], [address], 12/29/2024 12:48:15 12/30/19 25 12/29/2024 LIPID PROFI LE chol/HDL ratio (calc) 4.6 mg/dL normal NO HUSSAIN L RANGE ESTAB LISHE D FOR LAN STERO L/HDL RATIO (CALC ULATE D). Not Available [facility] [address] [place] [address], [address], 12/29/2024 12:48:15 12/30/19 25 12/29/2024 LIPID PROFI LE LDL, direct 158 0-99 high Not Available [facility] [address] [place] [address], [address], 12/29/2024 12:48:15 12/30/19 25 12/29/2024 COMP. METAB OLIC PANEL glucose 101 mg/dL 74-100 high Not Available [facility] [address] [place] [address], [address], 12/29/2024 12:48:16 12/30/19 25 12/29/2024 COMP. METAB OLIC PANEL blood urea nitrogen 18 mg/dL 6-20 normal Not Available [facility] [address] [place] [address], [address], 12/29/2024 12:48:16 12/30/19 25 12/29/2024 COMP. METAB OLIC PANEL creatinine 0.90 mg/dL 0.50-0 .95 normal Not Available [facility] [address] [place] [address], [address], 12/29/2024 12:48:16 12/30/19 25 12/29/2024 COMP. METAB OLIC PANEL BUN/creatini ne ratio 20 (calc ) 10-20 normal Not Available [facility] [address] [place] [address], [address], 12/29/2024 12:48:16 12/30/19 25 12/29/2024 COMP. METAB OLIC PANEL sodium 140 mmol/ L 136-14 5 normal Not Available [facility] [address] [place] [address], [address], 12/29/2024 12:48:16 12/30/19 25 12/29/2024 COMP. METAB OLIC PANEL potassium 4.2 mmol/ L 3.4-5. 0 normal Not Available [facility] [address] [place] [address], [address], 12/29/2024 12:48:16 12/30/19 25 12/29/2024 COMP. METAB OLIC PANEL chloride 103 mmol/ L 98-107 normal Not Available [facility] [address] [place] [address], [address], 12/29/2024 12:48:16 12/30/19 25 12/29/2024 COMP. METAB OLIC PANEL carbon dioxide 24 mmol/ L 22-31 normal Not Available [facility] [address] [place] [address], [address], 12/29/2024 12:48:16 12/30/19 25 12/29/2024 COMP. METAB OLIC PANEL anion gap 13 (calc ) 7-25 normal Not Available [facility] [address] [place] [address], [address], 12/29/2024 12:48:16 12/30/19 25 12/29/2024 COMP. METAB OLIC PANEL calcium 9.1 mg/dL 8.6-10 .2 normal Not Available [facility] [address] [place] [address], [address], 12/29/2024 12:48:16 12/30/19 25 12/29/2024 COMP. METAB OLIC PANEL total protein 7.6 g/dL 6.4-8. 3 normal Not Available [facility] [address] [place] [address], [address], 12/29/2024 12:48:16 12/30/19 25 12/29/2024 COMP. METAB OLIC PANEL albumin 4.0 g/dL 3.5-5. 2 normal Not Available [facility] [address] [place] [address], [address], 12/29/2024 12:48:16 12/30/19 25 12/29/2024 COMP. METAB OLIC PANEL globulin 3.6 1.5-4. 5 normal Not Available [facility] [address] [place] [address], [address], 12/29/2024 12:48:16 12/30/19 25 12/29/2024 COMP. METAB OLIC PANEL albumin/glob ulin ratio 1.1 (calc ) 1.1-2. 5 normal Not Available [facility] [address] [place] [address], [address], 12/29/2024 12:48:16 12/30/19 25 12/29/2024 COMP. METAB OLIC PANEL bilirubin, total 0.3 mg/dL 0.1-1. 2 normal Not Available [facility] [address] [place] [address], [address], 12/29/2024 12:48:16 12/30/19 25 12/29/2024 COMP. METAB OLIC PANEL alkaline phosphatase 90 U/L 30-121 normal Not Available [facility] [address] [place] [address], [address], 12/29/2024 12:48:16 12/30/19 25 12/29/2024 COMP. METAB OLIC PANEL AST 13 U/L 0-32 normal Not Available [facility] [address] [place], [address], 12/29/2024 12:48:16 12/30/19 25 12/29/2024 COMP. METAB OLIC PANEL ALT 13 U/L 0-33 normal Not Available [facility] [address] [place], [address], 12/29/2024 12:48:16 12/30/19 25 12/29/2024 COMP. METAB OLIC PANEL eGFR 69 >= 60 normal NOT E New calcu latio n for GFR (CKD- EPI 2020) is formu lated witho ut race adjus tment facto rs at the recom menda tion of the Paul Ke[place] y Cari atcarly and Muna Trane ty of Nephr ology . This calcu latio n has not been valid ated in pregn ant women . For pedia tric patie nts refer to https ://mary vidal.luly beltre/uriah stevens s/MARC QI/gf r_cal culat orPed Not Available [facility] [place], [address], 12/29/2024 12:48:16 12/30/19 25 12/29/2024 HEPAT ITIS C AB SCR, REFLE X HCVQT hcab scr, reflex viral RNA qt NONREA CTIVE nonrea ctive normal Antib odies to HCV were not detec jamel; does not exclu de the possi bilit y of expos ure to HCV. Not Available [facility] [address] [place], [address], 12/29/2024 12:52:11 12/30/19 25 12/29/2024 COMPL ETE BLOOD COUNT white blood cells 7.0 10*3/ uL 3.8-10 .8 normal Not Available [facility] [address] [place] [address], [address], 12/29/2024 13:08:08 12/30/19 25 12/29/2024 COMPL ETE BLOOD COUNT red blood cells 4.35 10*6/ uL 3.80-5 .20 normal Not Available [facility] [address] [place] [address], [address], 12/29/2024 13:08:08 12/30/19 25 12/29/2024 COMPL ETE BLOOD COUNT hemoglobin 12.5 g/dL 12.0-1 6.0 normal Not Available [facility] [address] [place] [address], [address], 12/29/2024 13:08:08 12/30/19 25 12/29/2024 COMPL ETE BLOOD COUNT hematocrit 36.6 % 35.0-4 7.0 normal Not Available [facility] [address] [place] [address], [address], 12/29/2024 13:08:08 12/30/19 25 12/29/2024 COMPL ETE BLOOD COUNT MCV 84 fL 80-100 normal Not Available [facility] [address] [place] [address], [address], 12/29/2024 13:08:08 12/30/19 25 12/29/2024 COMPL ETE BLOOD COUNT MCH 29 pg 26-35 normal Not Available [facility] [address] [place] [address], [address], 12/29/2024 13:08:08 12/30/19 25 12/29/2024 COMPL ETE BLOOD COUNT MCHC 34 g/dL 32-36 normal Not Available [facility] [address] [place] [address], [address], 12/29/2024 13:08:08 12/30/19 25 12/29/2024 COMPL ETE BLOOD COUNT RDW 14.8 % 11.0-1 5.0 normal Not Available [facility] [address] [place] [address], [address], 12/29/2024 13:08:08 12/30/19 25 12/29/2024 COMPL ETE BLOOD COUNT MPV 9.1 fL 6.2-10 .5 normal Not Available [facility] [address] [place] [address], [address], 12/29/2024 13:08:08 12/30/19 25 12/29/2024 COMPL ETE BLOOD COUNT platelet count 332 10*3/ uL 150-40 0 normal Not Available [facility] [address] [place] [address], [address], 12/29/2024 13:08:08 12/30/19 25 12/29/2024 COMPL ETE BLOOD COUNT neutrophil,a bsolute 4.6 10*3/ uL 1.6-8. 4 normal Not Available [facility] [address] [place] [address], [address], 12/29/2024 13:08:08 12/30/19 25 12/29/2024 COMPL ETE BLOOD COUNT lymphocyte,a bsolute 1.7 10*3/ uL 0.4-5. 1 normal Not Available [facility] [address] [place] [address], [address], 12/29/2024 13:08:08 12/30/19 25 12/29/2024 COMPL ETE BLOOD COUNT monocyte,abs olute 0.4 10*3/ uL 0.0-1. 2 normal Not Available [facility] [address] [place] [address], [address], 12/29/2024 13:08:08 12/30/19 25 12/29/2024 COMPL ETE BLOOD COUNT eosinophil,a bsolute 0.2 10*3/ uL 0.0-0. 8 normal Not Available [facility] [address] [place] [address], [address], 12/29/2024 13:08:08 12/30/19 25 12/29/2024 COMPL ETE BLOOD COUNT basophil,abs olute 0.1 10*3/ uL 0.0-0. 3 normal Not Available [facility] [address] [place] [address], [address], 12/29/2024 13:08:08 12/30/19 25 12/29/2024 COMPL ETE BLOOD COUNT % neutrophils 65.3 % 42.0-7 8.0 normal Not Available [facility] [address] [place] [address], [address], 12/29/2024 13:08:08 12/30/19 25 12/29/2024 COMPL ETE BLOOD COUNT % lymphocytes 23.7 % 11.0-4 7.0 normal Not Available [facility] [address] [place] [address], [address], 12/29/2024 13:08:08 12/30/19 25 12/29/2024 COMPL ETE BLOOD COUNT % monocytes 6.4 % 0.0-11 .0 normal Not Available [facility] [address] [place] [address], [address], 12/29/2024 13:08:08 12/30/19 25 12/29/2024 COMPL ETE BLOOD COUNT % eosinophils 3.3 % 0.0-7. 0 normal Not Available [facility] [address] [place] [address], [address], 12/29/2024 13:08:08 12/30/19 25 12/29/2024 COMPL ETE BLOOD COUNT % basophils 1.3 % 0.0-3. 0 normal Not Available [facility] [address] [place] [address], [address], 12/29/2024 13:08:08 12/30/19 25 12/29/2024 COMPL ETE BLOOD COUNT nucleated red cells 0.1 % 0.0-0. 9 normal Not Available [facility] [address] [place] [address], [address], 12/29/2024 13:08:08 12/30/19 25 12/29/2024 COMPL ETE BLOOD COUNT nucleated RBCs, absolute 0.01 10*3/ uL not estab. normal Not Available [facility] [address] [place] [address], [address], 12/29/2024 13:08:08 07/18/19 25 07/18/2024 CT, head + brain , w/o contr ast No observ ation record ed. dbeiting Not Available 2024 08:04:37 07/18/19 25 07/18/2024 CT, cervi andrew spine , w/o contr ast No observ ation record ed. dbeiting Not Available 2024 08:05:12 07/28/19 25 07/27/2024 elect rocar diogr am No observ ation record ed. BARCODE Not Available 2024 13:50:33 07/31/19 25 07/31/2024 DEXA No observ ation [place] [address] [place] [address], [address], 07/31/2024 15:18:37 08/02/19 25 07/31/2024 MAMMO , scree osvaldo, tomos ynthe sis, bilat eral, w/ CAD [facility] [address] [place] [id number] Santino atwood Name: NATA atwood : 1954 Age: 69 years Patipatric atwood 4 Orderi ng Provid er: SRI PIERSON G EXAM DATE: 2024 EXAM: MG SCREEN ING VERONIQUE MAMMOG JOSE INDICA TION: Routin e screen ing. No person al histor y of breast cancer . 5 % lifeti me risk of breast cancer PROCED URE: Multis lice imagin g of both breast s was perfor med in standa rd projec tions using Hologi c Seleni a Dimens ions tomosy nthesi s equipm ent (3D mammog tigist) . 2D images were create d from the 3D datase t using C-View softwa re. The study was read with the assist ance of Comput er Aided Detect ion (CAD) softwa re. COMPAR MATTHEW: This was compar ed with previo us mammog rosie dated , , 1 DENSIT Y: There are scatte red areas of fibrog landul ar densit y. FINDIN GS:No new mass, suspic ious calcif icatio n or area of kin ectura l distor tion. IMPRES RASHMI: Negati ve exam. BI-RAD S Catego ry 1, Negati ve, routin e follow -up. The patien t has been entere d into an [employer] [place] REI er system . Result s were mailed or given to the santino t. Interp reted By: Stefany watson MD Electr onical ly Signed By: Stefany watson MD on 025 1:06 PM dbeiting [facility] [address], [address], 08/03/2024 11:55:27 09/06/19 25 09/04/2024 US, doppl er echoc ardio gram, w/ color flow No observ ation record ed. [facility] Cardiology [address] , [place], [address], 09/06/2024 17:20:34 Result Notes Documentation Provider Name and Address Organization Details Recorded Time Dexa : [address] [address]DGYYJEX, Debbie L (Legal name: Sandie Chisholm) (id #[id number], : 1955) [address] [address] Date: 07/31/2024RE: Sandie Phan, : 1955, PT ID #[id number] Newman MD, I would like to thank you for referring Sandie Chisholm to our practice for consultation and evaluation. I have enclosed a copy of the office evaluation for your records. Sincerely, Electronically Signed by: Licha HERNÁNDEZ DocumentationDXA Osteoporosis:Bone Densitometry Dual Energy X-Ray Absorptiometry (DXA) Report & Bone Health Report Trabecular Bone Score ( TBS) Follow-up bone mineral density measurement was performed on a Hologic QDR-4500C scanner with good technique. Ordering Provider Dr. Mario Aguiariting Indications for the study:1. Post-menopausal state/osteopenia/parental hip fracture The L1-L4 lumbar spine bone density scan demonstrates lumbar spine T-score of -1.3, Z-score of 0.7, BMD 0.903 g/cm . Additionally, there has been a no statistically significant change in bone density over the lumbar spine when compared to the patient's previous examination on 06/02/2022. The left hip bone density scan demonstrates a femoral neck T-score of -2.7, Z-score of -1.0, BMD 0.548 g/cm . The total left hip T-score of -1.0, Z-score of 0.4, BMD 0.816 g/cm . Additionally there has been a no statistically significant change in bone density over the left total hip and a -14.% decrease in bone density over the femoral neck when compared to the previous bone density measurement on 06/02/2022. The lumbar spine TBS is 1.392 which suggest a normal microarchitecture compared to reference population. The patient's associated BMD and TBS values suggest a low resilience of fractureIMPRESSION: Osteoporosis as demonstrated by bone density measurement& low resilience to fracture by bone fragility in theAs perNational Osteoporosis Foundation 2014,postmenopausal women and men age 50 and older presenting with any the following should be considered for treatment: A hip or vertebral (clinical or morphometric) fracture or T-score = -2.5 at the femoral neck or spine after appropriate evaluation to exclude secondary causes or Low bone mass (T-score between -1.0 and -2.5 at the femoral neck or spine) and a 10-year probability of a hip fracture = 3% or a 10-year probability of a major osteoporosis-related fracture = 20% based on the [place]-adapted WHO algorithm Clinician's judgment and/or patient preferences may indicate treatment for people with 10-year fracture probabilities above or below these levels.Patient is a candidate for pharmacologic therapy of osteoporosis based on the above-mentioned criteriaRECOMMENDATIONS:1. Recommend pharmacologic therapy if not contraindicated, as appropriate as per referring provider. 2. Evaluation for secondary causes of osteoporosis (i.e. uncontrolled hyperthyroidism, etc) as appropriate per referring provider. 3. Ensure adequate calcium and vitamin D intake (1200 mg elemental calcium daily and 2000 IU Vit D daily) if this is clinically appropriate. 4. Keep 25 OHD >30 ng/mL. 5. Encourage practices to help increase bone density ( i.e. resistance/weight bearing exercise 3x weekly) if it could be done safely. 6. Discourage practices that would compromise bone density quality ( i.e. smoking, excessive alcohol consumption, and caffeine consumption) when applicable. 7. Follow bone density scan measurements in 1-2 years from now, while on therapy, utilizing the same scanning equipment to ensure stability or reliability. 8. Fall prevention. SRI NEWMAN MD [address] [place] [address], [phone] 07/31/2024 15:18:37 Mammo, Screening, Tomosynthesis, Bilateral, W/ Cad : [place] [address] Patient Name: SANDIE CHISHOLM Patient : 1955 Age: 69 years Patient Ordering Provider: SRI NEWMAN EXAM DATE: 07/31/2024 EXAM: MG SCREENING VERONIQUE MAMMOGRAM INDICATION: Routine screening. No personal history of breast cancer. 5 % lifetime risk of breast cancer PROCEDURE: Multislice imaging of both breasts was performed in standard projections using [employer] tomosynthesis equipment (3D mammography). 2D images were created from the 3D dataset using C-View software. The study was read with the assistance of Computer Aided Detection (CAD) software. COMPARISON: This was compared with previous mammograms dated 06/08/23, 06/02/22, 08/30/20 DENSITY: There are scattered areas of fibroglandular density. FINDINGS:No new mass, suspicious calcification or area of architectural distortion. IMPRESSION: Negative exam. BI-RADS Category 1, Negative, routine follow-up. The patient has been entered into an automated reminder system. Results were mailed or given to the patient. Interpreted By: Stefany Lombardi MD NEWMAN MD [address] [place] [address], [address] [place] [address] 08/03/2024 11:55:27 Problems Name Problem SNOMED Code Status Onset Date Resolution Date Notes Provider Name and Address Organization Details Recorded Time Acute sinusiti s 37692806 Completed 201501/12/2017 From Automate d Load;Pro vider: Hanna, Krystin;St atus: Active SRI NEWMAN MD [address] [place] [address], [address] [place] [address] 7 16:04:06 Dizzines s and giddines s [id number] Completed 201501/12/2017 From Automate d Load;Pro vider: Jacques, Krystin;St atus: Active SRI NEWMAN MD [address] [place] [address], [address] [place] [address] 7 16:04:09 [facility] hyperten rashmi 11321630 Active 2016 SRI NEWMAN MD [address] [place] [address] 5 14:19:51 Hyperlip idemia 67077239 Active 2016 SRI NEWMAN MD [address] [place] [address] 5 14:19:53 Prinzmet al angina 17685835 Active 2016 [facility] Not Available [facility] 2 10:07:46 Gastroes ophageal reflux disease without esophagi tis 915622803 Active 2016 Not Available [facility] 2 10:07:46 Migraine 51105917 Active 2016 Not Available [facility] 2 10:07:46 Histopla smosis 39324149 Active [address] Duncan. Not Available [facility] 2 10:07:46 Obesity 968805557 Active 2016 Not Available [facility] 2 10:07:46 Anxiety disorder 050251129 Active 2016 Not Available [facility] 2 10:07:46 Tubular adenoma 948138627 Active 2017 Dr Price Not Available [facility] 2 10:07:46 Hypergly cemia 17259125 Active 2017 SRI NEWMAN MD [address] [place] [address], [address] [place] [address] , [facility] 5 14:20:01 Divertic ular disease 199328808 Active 2020 Not Available Replaced by [facility] 2 10:07:46 Osteopen ia 279302727 Active 2021 SRI NEWMAN MD [address] [place] [address] , [facility] 2 15:22:39 Osteopor osis 54160610 Active 2024 SRI NEWMAN MD [address] [place] [address], [phone] , [facility] [facility] 5 15:18:30 Congesti ve heart failure [id number] Active 2024 SRI NEWMAN MD [address] [place] [address], [address] [place] [address] , [facility] 5 09:05:22 Problem Notes Documentation Provider Name and Address Organization Details Recorded Time Adenosine Stress Test (proc) : [address] [facility] [address]XMJCOYJ, Debbie L (Legal name: Sandie Phan) (id #[id number], : 1955) [address] [address] Encounter Summary - Progress Note Date Printed: 09/04/2024 Documents sent via fax will include the followingmessage: This fax may contain sensitive and confidential personal health information that is being sent for the sole use of the intended recipient. Unintended recipients are directed to securely destroy any materials received. You are hereby notified that the unauthorized disclosure or other unlawful use of this fax or any personal health information is prohibited. To the extent patient information contained in this fax is subject to 42 CFR Part 2, this regulation prohibits unauthorized disclosure of these records. If you received this fax in error, please visit [email or web address] to notify the sender and confirm that the information will be destroyed. If you do not have internet access, please call to notify the sender and confirm that the information will be destroyed. Thank you for your attention and cooperation. [ID:[id number]] Patient Sandie Chisholm (69yo, F) #[id number] 1955 Patient Demographics: Address [address] [address] Work Phone Encounter Notes: Encounter Reason/DateNone recorded 09/04/2024 - 08:00AM - HEART STATION [facility] History of Present IllnessNone recorded Review of SystemsNone recorded VitalsNone recorded Results/InterpretationsNone recorded Physical ExamNone recorded Procedure DocumentationStress Test - Nuclear Lexiscan:Referring Physician: Jesse Hankins APRN Cc Physician: Mario Newman MD ATTENDING PHYSICIAN CONCLUSION: 1. Patient underwent LexiScan Nuclear Stress testing as per protocol. This is considered an adequate stress test. The patient c/o chest pain. 2. EKG: Baseline EKG - sinus bradycardia, rate=56 , normal axis, RBBB. Stress EKG - normal sinus rhythm, no significant arrhythmias noted, no significant ST changes vs. baseline. 3. LV Data: TID=0.84, LVEDV=69ml, LVESV=12 ml, LVEF=82%, SSS=0, SDS=0. 4. Perfusion: Myocardial Perfusion is normal per my review of the raw data. 5. Wall Motion: Wall motion was normal on this study. Impression: 1. Normal myocardial perfusion at rest and stress. 2. LVEF=82%, with normal regional wall motion. 3. No significant EKG changes noted during this study. Sami Dunlap M.D., [facility] (09/04/24) Clinical Data:CP Medications:see list IV: IV Saline Lock:#24g R hand by Joshua Oscar RN LEXISCAN Dose: 0.4 mg/5mL [facility]#[id number] Expiration Date: 03/16 LOT#: [id number] Resting ECG was Nuclear Medicine Dose: 9.52 mCi TC Myoview -Rest Nuclear Medicine Dose: 33.2 mCi TC Myoview - Stress Results of Lexiscan Stress Test Ischemic Response: Assessment and PlanNone recorded Return to Office CARDIO_ULTRASOUND for CARDIO ULTRASOUND at RADIOLOGY CARDIOLOGY [facility] on 09/04/2024 at 09:00 AM NUCLEAR_MEDICINE for NUCLEAR MED STUDY at RADIOLOGY [facility] on 09/04/2024 at 08:00 AM DAVID HANKINS APRN for RECHECK at CARDIOLOGY [facility] on 11/16/2024 at 01:30 PM SRI NEWMAN MD for RECHECK at INTERNAL MEDICINE on 12/05/2024 at 02:00 PM Patient Medical History: Allergies List Reviewed Allergies AUGMENTIN CIPRO: - Comment: Created By: Renée Aguila;Created Date: 01/23/2009 6:07:17 PM; SULFA (SULFONAMIDE ANTIBIOTICS): - Comment: Created By: Renée Aguila;Created Date: 01/23/2009 6:07:27 PM; Medications Reviewed Medications NameDate Source amLODIPine 10 mg tabletTAKE 1 TABLET BY MOUTH EVERY DAY06/03/24 renewed SRI NEWMAN MD aspirin 81 mg tablet,delayed releaseTake 1 tablet(s) every day by oral route.10/05/16 entered SRI NEWMAN MD atorvastatin 40 mg tabletTAKE 1 TABLET BY MOUTH EVERY DAY07/13/24 filled surescripts Bi-Est E3E2 (8020) Cream Versabase 0.5mg/Gm Vaginal #Use one gram in the vagina 2 times nyqzaq87/08/24 filled surescripts Calcium 500 + D 500 mg-5 mcg (200 unit) tabletTake 1 tablet(s) every day by oral route.10/05/16 entered SRI NEWMAN MD Compound Bi-Est Vaginal Cream (Estriol-E3 Estradiol-E2 (80:20) 0.5 mg/gm)Compound Bi-Est Vaginal Cream (Estriol-E3 Estradiol-E2 (80:20) 0.5 mg/gm) use one gram in the vagina 2 x lhkhzy12/07/24 prescribed KELLY NEWMAN MD escitalopram 20 mg tabletTAKE 1 TABLET BY MOUTH EVERY DAY09/01/24 filled surescripts omeprazole 40 mg capsule,delayed releaseTAKE 1 CAPSULE BY MOUTH EVERY DAY07/11/24 filled surescripts ondansetron 4 mg disintegrating tabletDISSOLVE 1 TABLET ON THE TONGUE EVERY 8 HOURS FOR 4 DAYS NEEDED FOR NAUSEA OR KJQONDKI77/28/25 filled surescripts oxyBUTYnin chloride ER 10 mg tablet,extended release 24 hr1 tablet by oral route daily08/08/24 filled surescripts ranolazine ER 500 mg tablet,extended release,12 hrTAKE 1 TABLET BY MOUTH TWICE DAILY08/04/24 filled surescripts Family HistoryFamily History not reviewed (last reviewed 08/01/2024) Father - Heart disease (onset age: 40) ( age: 53) - Myocardial infarction (onset age: 40) ( age: 53) - Hypertensive disorder (onset age: 40) ( age: 53) Mother - Heart disease (onset age: 68) - Family history of stroke - Atrial fibrillation - Osteoporosis (onset age: 60) ( age: 86) - Hypertensive disorder (onset age: 65) - Arthritis (onset age: 65) ( age: 86) - Dementia (onset age: 82) Brother - Heart disease (onset age: 49) - Dementia (onset age: 79) - Myocardial infarction (onset age: 42) ( age: 47) - Myocardial infarction (onset age: 49) - Myocardial infarction (onset age: 39) ( age: 52) - Myocardial infarction (onset age: 40) ( age: 51) - Hypertensive disorder - Hypertensive disorder - Hypertensive disorder - Hypertensive disorder - Heart disease (onset age: 39) ( age: 52) - Heart disease (onset age: 42) ( age: 47) - Heart disease (onset age: 40) ( age: 51) Paternal Grandfather - Myocardial infarction ( age: 65) - Heart disease ( age: 65) Maternal Grandfather - Myocardial infarction ( age: 60) - Heart disease ( age: 60) Paternal Grandmother - Heart disease ( age: 70) - Myocardial infarction ( age: 70) Past Medical History AIDS/HIV N Acid Reflux (GERD)Y Anxiety Disorder N ArrhythmiaY Asthma N Atrial Fibrillation N Black Lung N Bleeding Disorder N Blood Thinners N COPD N Cancer N Cardiac DiseaseY Cardiomyopathy N Chest PainY Congestive Heart Failure (CHF) N Coronary Artery Disease N Diabetes N Edema N Endocrine Disorder N GERD/RefluxY Heart ArrhythmiaY Heart Attack ([place]) N Heart ConditionsY Heart Disease N Heart MurmurY Heart ProblemsY Hiatal herniaY High CholesterolY History of Blood Thinners N Hyperlipidemia N HypertensionY Implanted Cardiac Device N Jaundice N Lung Disease N Nervous Illness N Pacemaker N Peripheral Arterial Disease N Peripheral Vascular Disease N Restless leg syndrome N Rheumatic Fever N Shortness of Breath N Sleep Apnea N Stroke N Thyroid Disease N Thyroid Problems N Tuberculosis N Ulcers N Vascular Disease N Warfarin Management N Vaccine HistoryVaccines not reviewed (last reviewed 08/01/2024) Vaccine Type Date Amt. Route Site [facility] Lot # Mfr. Exp. 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 04/18/21 COVID-19, mRNA, LNP-S, PF, 100 mcg/0.5 mL dose (Moderna) 10/22/20 0.5 mL Intramuscular [id number] Moderna [employer] 03/20/21 Hepatitis A Hep A, adult 01/03/19 Intramuscular Arm, Left Upper [id number] GlaxoSmithKline 07/21/21 HepA 01/08/2016 (Barcoded) 01/03/19 Consuelo Catehrine Influenza influenza, high dose seasonal 05/23/24 0.5 mL Intramuscular Deltoid, Left [id number] Sanofi Pasteur 12/18/24 Inactivated Influenza 01/24/2021 05/23/24 Consuelo Catherine influenza 04/04/22 influenza, injectable, quadrivalent 04/04/21 influenza, injectable, quadrivalent, preservative free 04/17/20 0.5 mL [id number] Sanofi Pasteur 12/18/20 influenza, injectable, quadrivalent, preservative free 05/23/18 Intramuscular Arm, Left Upper [id number] Sanofi Pasteur 12/18/18 TIV/QIV 01/25/2015 05/23/18 Consuelo Catherine Pneumococcal Pneumococcal conjugate PCV20, polysaccharide [id number] conjugate, adjuvant, PF 03/23/22 0.5 mL Intramuscular Deltoid, Left [id number] 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 01/19/23 Pneumococcal Conjugate 07/25/21 03/23/22 Consuelo Catherine pneumococcal conjugate PCV 13 06/05/20 0.5 mL Intramuscular Deltoid, Left [id number] 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 05/20/22 PCV13 04/19/2019 06/05/20 Consuelo Catherine Zoster zoster recombinant 08/30/20 Intramuscular Deltoid, Left [id number] [facility] 06/07/22 Recombinant Zoster 04/19/2019 08/30/20 Consuelo Catherine zoster recombinant 04/17/20 0.5 mL [id number] [facility] 03/20/22 Electronically Signed by: MANDA DUNLAP MD SRI NEWMAN MD [address] [place], [address], [facility] 09/05/2024 02:59:02 Procedures Surgical History Date Name Laterality Status Provider Name and Address Organization Details Recorded Time 09/05/19 25 Stress Test - Nuclear Lexiscan completed MANDA DUNLAP MD [address] [place], [address], [facility] 09/04/2024 20:16:11 08/01/19 25 EKG completed DAVID HANKINS MACHINE III COREMAKER [address] [place], [address], [facility] 08/01/2024 20:28:14 07/31/19 25 DXA Osteoporosis completed PJ REEVES MD [address] [place], [address], [facility] 07/31/2024 14:13:07 06/02/20 22 DXA Low Bone Mass 1 - No Tx completed PJ REEVES MD [address] [place], [address], [facility] 06/02/2022 16:57:31 12/25/19 22 OT Therapeutic Exercise completed PAULINA PEREIRA, OTR/L, CHT [address] [place], [address], [facility] 12/24/2021 11:55:00 12/25/19 22 OT Manual Therapy completed PAULINA PEREIRA OTR/L, CHT [address] [place], [address], [facility] 12/24/2021 11:55:00 12/25/19 22 PT Paraffin Bath completed PAULINA PEREIRA OTR/L, CHT [address] [place], [address], [facility] 12/24/2021 11:55:00 12/16/19 22 OT Therapeutic Exercise completed PAULINA PEREIRA OTR/L, CHT [address] [place], [address], [facility] 12/15/2021 08:21:51 12/16/19 22 OT Manual Therapy completed PAULINA PEREIRA OTR/L, CHT [address] [place], [address], [facility] 12/15/2021 08:21:51 12/16/19 22 PT Paraffin Bath completed PAULINA PEREIRA OTR/L, CHT [address] [place], [address], [facility] 12/15/2021 08:21:51 12/09/19 22 EKG completed ESTRELLITA HASKINS PA-C [address] [place], [address], [facility] 12/08/2021 14:28:43 12/09/19 22 OT Therapeutic Exercise completed PAULINA PEREIRA, OTR/L, CHT [address] [place], [address], [facility] 12/08/2021 08:47:31 12/09/19 22 OT Manual Therapy completed PAULINA PEREIRA, OTR/L, CHT [address] [place], [address], [facility] 12/08/2021 09:56:25 12/09/19 22 PT Paraffin Bath completed PAULINA PEREIRA, OTR/L, CHT [address] [place], [address], [facility] 12/08/2021 08:47:31 12/02/19 22 OT Therapeutic Exercise completed PAULINA PEREIRA, OTR/L, CHT [address] [place], [address], [facility] 12/01/2021 12:51:55 12/02/19 22 OT Manual Therapy completed PAULINA PEREIRA OTR/L, CHT [address] [place], [address], [facility] 12/01/2021 12:51:55 12/02/19 22 PT Paraffin Bath completed PAULINA PEREIRA OTR/L, CHT [address] [place], [address], [facility] 12/01/2021 12:51:55 11/25/19 22 OT Therapeutic Exercise completed PAULINA PEREIRA OTR/L, CHT [address] [place], [address], [facility] 11/24/2021 12:59:45 11/25/19 22 OT Manual Therapy completed PAULINA PEREIRA OTR/L, CHT [address] [place], [address], [facility] 11/24/2021 12:59:45 11/25/19 22 PT Paraffin Bath completed PAULINA PEREIRA OTR/L, CHT [address] [place], [address], [facility] 11/24/2021 12:59:45 11/20/19 22 OT Therapeutic Exercise completed PAULINA PEREIRA OTR/L, CHT [address] [place], [address], [facility] 11/19/2021 14:35:27 11/20/19 22 OT Manual Therapy completed PAULINA PEREIRA, OTR/L, CHT [address] [place], [address], [facility] 11/19/2021 11:40:45 11/20/19 22 PT Paraffin Bath completed PAULINA PEREIRA, OTR/L, CHT [address] [place], [address], [facility] 11/19/2021 11:40:45 11/13/19 22 OT Therapeutic Exercise completed PAULINA PEREIRA, OTR/L, CHT [address] [place], [address], [facility] 11/12/2021 11:30:10 11/13/19 22 OT Manual Therapy completed PAULINA PEREIRA OTR/L, CHT [address] [place], [address], [facility] 11/12/2021 11:30:10 11/13/19 22 PT Paraffin Bath completed PAULINA PEREIRA OTR/L, CHT [address] [place], [address], [facility] 11/12/2021 11:30:10 11/11/19 22 OT Therapeutic Exercise completed PAULINA PEREIRA OTR/L, CHT [address] [place], [address], [facility] 11/10/2021 15:53:34 11/11/19 22 OT Manual Therapy completed PAULINA PEREIRA OTR/L, CHT [address] [place], [address], [facility] 11/10/2021 12:59:46 11/11/19 22 PT Paraffin Bath completed PAULINA PEREIRA OTR/L, CHT [address] [place], [address], [facility] 11/10/2021 12:59:46 11/08/19 22 OT Therapeutic Exercise completed PAULINA PEREIRA OTR/L, CHT [address] [place], [address], [facility] 11/07/2021 09:57:01 11/08/19 22 OT Manual Therapy completed PAULINA K RANDALL, OTR/L, CHT [address] [place], [address], [facility] 11/07/2021 07:34:06 11/08/19 22 PT Paraffin Bath completed PAULINA PEREIRA, OTR/L, CHT [address] [place], [address], [facility] 11/07/2021 07:34:06 11/06/19 22 OT Therapeutic Exercise completed PAULINA PEREIRA, OTR/L, CHT [address] [place], [address], [facility] 11/05/2021 11:03:06 11/06/19 22 OT Manual Therapy completed PAULINA PEREIRA, OTR/L, CHT [address] [place], [address], [facility] 11/05/2021 11:03:02 11/06/19 22 PT Paraffin Bath completed PAULINA PEREIRA, OTR/L, CHT [address] [place], [address], [facility] 11/05/2021 10:10:04 11/01/19 22 OT Manual Therapy completed PAULINA PEREIRA, OTR/L, CHT [address] [place], [address], [facility] 10/31/2021 09:20:31 10/30/19 22 OT Manual Therapy completed PAULINA PEREIRA OTR/L, CHT [address] [place], [address], [facility] 10/29/2021 11:33:20 10/28/19 22 OT Manual Therapy completed PAULINA PEREIRA, OTR/L, CHT [address] [place], [address], [facility] 10/27/2021 07:49:47 10/25/19 22 OT Manual Therapy completed PAULINA PEREIRA, OTR/L, CHT [address] [place], [address], [facility] 10/24/2021 13:26:01 10/24/19 22 OT Manual Therapy completed PAULINA PEREIRA, OTR/L, CHT [address] [place], [address], [facility] 10/23/2021 07:38:10 10/23/19 22 OT Manual Therapy completed PAULINA PEREIRA, OTR/L, CHT [address] [place], [address], [facility] 10/22/2021 15:02:52 10/22/19 22 OT Manual Therapy completed PAULINA PEREIRA, OTR/L, CHT [address] [place], [address], [facility] 10/21/2021 15:28:49 10/21/19 22 OT Evaluation - Moderate complexity completed PAULINA PEREIRA, OTR/L, CHT [address] [place], [address], [facility] 10/20/2021 08:27:45 10/21/19 22 OT Manual Therapy completed PAULINA PEREIRA OTR/L, CHT [address] [place], [address], [facility] 10/20/2021 08:47:01 05/27/20 21 EKG completed FATOU MENDOZA-C [address] [place], [address], [facility] 05/27/2021 09:57:44 05/21/20 20 EKG completed FATOU MENDOZA-C [address] [place], [address], [facility] 05/21/2020 16:00:48 11/14/19 20 EKG completed ESTRELLITA CROSUZAN PA-C [address] [place], [address], [facility] 11/14/2019 15:35:15 05/31/20 19 EKG completed ESTRELLITA CROSUZAN PA-C [address] [place], [address], [facility] 05/31/2019 17:03:11 05/16/20 18 EKG completed ESTRELLITA CROUCH, PA-C [address] [place], [address], [facility] 05/16/2018 15:20:11 05/31/20 17 Date of Last Pap Smear completed SRI NEWMAN MD [facility] [place], [address], [facility] 05/31/2019 10:59:30 04/06/20 17 EKG completed ESTRELLITA HASKINS PA-C [address] [place] [address] [place], [address], [facility] 04/06/2017 12:30:33 10/20/19 17 Evening/Weekend/Hol iday Services completed Angélica Trujillo [facility] 10/19/2016 17:52:41 10/08/19 17 EKG completed ESTRELLITA HASKINS PA-C [address] [place] [address] [place], [address], [facility] 10/07/2016 09:11:15 Cholecystectomy completed SRI NEWMAN MD [address] [place] [address] [place], [address], [facility] 10/05/2016 14:59:37 Appendectomy completed SRI NEWMAN MD [address] [place] [address], [address], [facility] 10/05/2016 14:59:42 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 Surgery completed SRI NEWMAN MD [address] [place] [address], [address], [facility] 10/05/2016 14:59:59 Breast Biopsy completed SRI NEWMAN MD [address] [place] [address] [place], [address], [facility] 10/05/2016 15:00:17 Other completed SRI NEWMAN MD [address] [place] [address], [address], [facility] 10/05/2016 15:00:33 Hernia Repair completed SRI NEWMAN MD [address] [place] [address] [place], [address], [facility] 10/05/2016 15:18:16 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 Surgery completed SRI NEWMAN MD [address] [place] [address], [address], [facility] 10/05/2016 15:18:25 Imaging Results None recorded. Procedure Notes None recorded. Medical Equipment None Reported. Allergies Allergen ID Allergen Name Allergen Category Reaction Reaction Severity Criticality Documentation Date Start Date Code Code System Note Provider Name and Address Organization Details Recorded Time 609815 Substance with sulfonami de structure and antibacte rial mechanism of action (substanc e) medicatio n Not available Not available Not available 05/14/20162008 97215 8003 SNOMED Comme nt: Creat ed By: Savana atwood;Cre ated Date: 6:07: 27 PM; Not Available Replaced by [facility] 6 10:41:12 [id number] Cipro medicatio n Not available Not available Not available 05/14/20162008 84771 3 RxNorm Comme nt: Creat ed By: Savana Sim t;Cre ated Date: 6:07: 17 PM; Not Available Replaced by [facility] 6 10:41:12 [id number] Iodinated contrast media (substanc e) medicatio n Not available Not available Not available 05/15/20162005 48650 2003 SNOMED Comme nt: Creat ed By: Jessie Hooks; Creat ed Date: 11:36 :25 AM; SRI NEWMAN MD [address] [place], [address], [facility] 7 14:50:21 [id number] Augmentin medicatio n Not available Not available Not available 02/02/2017 54332 2 RxNorm Olena Chaudhary [facility], [facility] 7 16:35:16 Medications Name Sig Start Date Stop Date Status Note LastModified by Organization Details LastModified Time bi-est e3e2 (8020) cream versabase 0.5mg/gm vaginal # Use one gram in the vagina 2 times weekly active Not Available Not Available No t Available compound drug 05/23 completed Not Available Not Available Not Available Compound Bi-Est Vaginal Cream (Estriol- E3 Estradiol -E2 (80:20) 0.5 mg/gm) use one gram in the vagina 2 x weekly 2023 active Not Available Not Available Not Avai lable atorvasta tin 40 mg tablet TAKE 1 TABLET BY MOUTH EVERY DAY 2024 active Not Available Not Available Not Avai lable promethaz ine-DM 6.25 mg-15 mg/5 mL oral syrup TAKE 5ML BY MOUTH THREE TIMES DAILY NEEDED 12/08 completed Not Available Not Available Not Available atorvasta tin 20 mg tablet TAKE 1 TABLET BY MOUTH EVERY DAY 06/08 completed Not Available Not Available Not Available zinc gluconate 100 mg tablet Take 1 tablet every day by oral route for 30 days. 12/08 completed Not Available Not Available Not Available Vitamin C 500 mg tablet Take 1 tablet every day by oral route for 30 days. 12/08 completed Not Available Not Available Not Available oxybutyni n chloride ER 10 mg tablet,ex tended release 24 hr 1 tablet by oral route daily active Not Available Not Available No t Available azithromy greta 250 mg tablet TAKE 2 TABLETS (500 MG) BY ORAL ROUTE ONCE DAILY FOR 1 DAY THEN 1 TABLET (250 MG) BY ORAL ROUTE ONCE DAILY FOR 4 DAYS 01/13 completed Not Available Not Available Not Available ondansetr on HCl 4 mg tablet 11/08 completed Not Available Not Available Not Available isosorbid e mononitra te ER 30 mg tablet,ex tended release 24 hr Take 1 tablet(s ) every day by oral route. 08/01 completed Not Available Not Available Not Available potassium chloride ER 10 mEq tablet,ex tended release take 1 tablet by mouth once daily 05/31 completed Not Available Not Available Not Available omeprazol e 40 mg capsule,d elayed release TAKE 1 CAPSULE BY MOUTH EVERY DAY 2024 active Not Available Not Available Not Avai lable aspirin 81 mg tablet,de layed release Take 1 tablet every day by oral route. active Not Available Not Available No t Available tramadol 50 mg tablet TAKE 1 TABLET BY MOUTH EVERY 4-6 HOURS NEEDED FOR PAIN 11/05 completed Not Available Not Available Not Available isosorbid e mononitra te ER 120 mg tablet,ex tended release 24 hr Take 1 tablet every day by oral route for 90 days. 05/16 completed Not Available Not Available Not Available meloxicam 7.5 mg tablet TAKE 1 TABLET BY MOUTH EVERY DAY WITH FOOD FOR 1 WEEK. THEN TAKE 1 TABLET BY MOUTH EVERY DAY ONLY NEEDED FOR PAIN THERAFTE R 10/29 completed Not Available Not Available Not Available Tessalon Perles 100 mg capsule Take 1 capsule 3 times a day by oral route for 10 days. 01/12 completed Not Available Not Available Not Available isosorbid e mononitra te ER 60 mg tablet,ex tended release 24 hr Take 1 tablet every day by oral route. 05/31 completed Headache s Not Available Not Available Not Available amoxicill in 875 mg tablet Take 1 tablet twice a day by oral route with meals for 10 days. 01/03 completed Not Available Not Available Not Available metoclopr amide 5 mg tablet Take 1 tablet 4 times a day by oral route. 11/[address] Price Not Available Not Available Not Available meclizine 25 mg tablet Three times a day 10/05 completed Frequenc y: tid;Alt Frequenc y: prn;Medi cation Descript ion: meclizin e; Dosage:1 ; Route:or al; refills: 0; Quantity :10 tablet Not Available Not Available Not Available amlodipin e 10 mg tablet TAKE 1 TABLET BY MOUTH EVERY DAY 2023 active Not Available Not Available Not Avai lable pantopraz ole 40 mg tablet,de layed release Take 1 tablet every day by oral route for 90 days. 10/05 completed Not Available Not Available Not Available isosorbid e dinitrate 20 mg tablet Every six hours 10/05 completed Duration : 10 days;Massimo quency: q6h;Medi cation Descript ion: isosorbi de dinitrat e; Route:or al; refills: 0; Quantity :120 tablet Not Available Not Available Not Available promethaz ine 25 mg tablet 11/08 completed Not Available Not Available Not Available oxybutyni n chloride ER 5 mg tablet,ex tended release 24 hr TAKE 1 TABLET BY MOUTH EVERY DAY 05/23 completed Not Available Not Available Not Available omeprazol e 20 mg capsule,d elayed release TAKE 1 CAPSULE BY MOUTH ONCE DAILY 04/14 completed Not Available Not Available Not Available aspirin 81 mg chewable tablet Four 81mg tablets were chewed in clinic 04/06 completed [facility] [phone] Not Available Not Available Not Available furosemid e 20 mg tablet take 1 tablet by mouth once daily 05/31 completed Not Available Not Available Not Available gabapenti n 100 mg capsule TAKE ONE CAPSULE BY MOUTH EVERY NIGHT AT BEDTIME FOR 1 WEEK 10/29 completed Not Available Not Available Not Available methylpre dnisolone 4 mg tablets in a dose pack Take 1 dose pk by oral route. 05/23 completed Not Available Not Available Not Available ondansetr on 4 mg disintegr ating tablet not takingDI SSOLVE 1 TABLET ON THE TONGUE EVERY 8 HOURS FOR 4 DAYS NEEDED FOR NAUSEA OR VOMITING active Not Available Not Available No t Available doxycycli ne hyclate 100 mg tablet Take 1 tablet twice a day by oral route for 10 days. 12/08 completed Not Available Not Available Not Available metoclopr amide 10 mg tablet Take 1 tablet 4 times a day by oral route. 01/13 completed Not Available Not Available Not Available Calcium 500 + D 500 mg-5 mcg (200 unit) tablet Take 1 tablet every day by oral route. active Not Available Not Available No t Available escitalop jose 20 mg tablet TAKE 1 TABLET BY MOUTH EVERY DAY 2024 active Not Available Not Available Not Avai lable Skelaxin 800 mg tablet Take 1 tablet 3 times a day by oral route for 10 days. 01/12 completed Not Available Not Available Not Available cyclobenz aprine 5 mg tablet 11/13 completed Not Available Not Available Not Available Calcium-V itamin D 10/05 completed Medicati on Descript ion: calcium- vitamin D; Route:or al; refills: 0 Not Available Not Available Not Available Vitamin D3 10/05 completed Medicati on Descript ion: cholecal ciferol; Route:or al; refills: 0 Not Available Not Available Not Available amlodipin e-benazep ril 10/05 completed Medicati on Descript ion: amlodipi ne; Route:or al; refills: 0 Not Available Not Available Not Available pantopraz ole 10/05 completed Medicati on Descript ion: pantopra zole; refills: 0 Not Available Not Available Not Available escitalop jose oxalate 10/05 completed Medicati on Descript ion: escitalo pram; Route:or al; refills: 0 Not Available Not Available Not Available ranolazin e ER 500 mg tablet,ex tended release,1 2 hr TAKE 1 TABLET BY MOUTH TWICE DAILY active Not Available Not Available No t Available Evamist 1.53 mg/spray (1.7 %) transderm al spray 10/05 completed Medicati on Descript ion: estradio l; refills: 0 Not Available Not Available Not Available estradiol 10 mcg vaginal tablet use one tablet in the vagina 2 x weekly 10/25 completed Not Available Not Available Not Available Vitamin D3 50 mcg (2,000 unit) capsule Take 1 capsule every day by oral route for 30 days. 12/08 completed Not Available Not Available Not Available Myrbetriq 25 mg tablet,ex tended release Take 1 tablet every day by oral route. 05/23 completed Not Available Not Available Not Available Shingrix (PF) 50 mcg/0.5 mL intramusc ular suspensio n, kit 05/21 completed Not Available Not Available Not Available Afluria Qd 2019- (36 mos up)(PF)60 mcg (15 mcg x4)/0.5 mL IM syringe 05/21 completed Not Available Not Available Not Available Vitals Date Recorded Body height Body mass index (BMI) Body weight Heart rate Provider Name and Address Organization Details Last Updated DateTime 07/27/2024 162.56 cm 28.3 kg/m2 72764.74 g 71 /min DAVID HANKINS, MACHINE III COREMAKER [address] [place], [address], [facility] 08/01/2024 20:20:32 Date Recorded Body height Body mass index (BMI) Body weight Oxygen saturation Heart rate Systolic And Diastolic Provider Name and Address Organization Details Last Updated DateTime 05/29/202 5 162.56 cm 28.7 kg/m2 75665.6 3 g 96 % 65 /min 140/88 mm[Hg] Cassie atwood [facility] 13:50:20 Date Recorded Body height Respiratory rate Heart rate Systolic And Diastolic Provider Name and Address Organization Details Last Updated DateTime 01/01/2025 162.56 cm 12 /min 64 /min 118/78 mm[Hg] SRI NEWMAN MD [address] [place] [id number] [facility] 01/01/2025 13:29:33 Date Recorded Body mass index (BMI) Body weight Provider Name and Address Organization Details Last Updated DateTime 01/01/2025 28.5 kg/m2 52162.73 g Consuelo Catherine [facility] 01/01/2025 13:18:44 Social History Question Answer Notes LastModified by Organizat ion Details LastModified Time Tobacco Smoking Status Never Smoker SRI NEWMAN MD [address] [place] [address], [phone] 10/05/2016 14:59:23 How Much Tobacco Do You Chew? None Information not available 08/31/2018 Live Alone Or With Others? With Others Information not available 10/07/2016 Marital Status Informatio n not available 10/07/2016 What Was The Date Of Your Most Recent Tobacco Screening? 11/16/[email or web address] Information not available 11/16/2024 How Many Children Do You Have? 2 Information not available 10/07/2016 What Is Your Relationship Status? [email or web address] Information not available 05/27/2021 How Much Tobacco Do You Smoke? No Information not available 08/31/2018 Has Tobacco Cessation Counseling Been Provided? No Information not available 06/30/2022 Have You Recently Traveled Abroad? No [email or web address] Information not available 05/27/2021 Sex: Female Functional Status Question Answer Note LastModified by Organizat ion Details LastModified Time Do you or have you ever used any other forms of tobacco or nicotine? No Information not available 06/30/2022 What is your level of alcohol consumption? 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 Never used electronic cigarettes Information not available 11/09/2019 Mental Status None recorded. Family History Relationship Description Onset Age of this Age Resolved Age Notes LastModified by Organization Details LastModified Time Father Heart disease 40 53 [email or web address] Not available 2016 16:00:49 Father Myocardial infarction 40 53 [email or web address] Not available 01/12 16:00:49 Father Hypertensive disorder 40 53 [email or web address] Not available 2016 16:00:49 Mother Heart disease 68 [email or web address] Not available 2024 13:36:13 Mother Family history of stroke [email or web address] Not available 2024 13:36:13 Mother Atrial fibrillation [email or web address] Not available 13:36:13 Mother Osteoporosis 60 86 [email or web address] Not avail able 01/12/2017 16:00:49 Mother Hypertensive disorder 65 [email or web address] Not available 2024 13:36:13 Mother Arthritis 65 86 [email or web address] Not availabl e 01/12/2017 16:00:49 Mother Dementia 82 [email or web address] Not available 04/06/2017 16:04:47 Brother Heart disease 49 [email or web address] Not available 2024 13:36:13 Brother Dementia 79 [email or web address] Not availabl e 04/06/2017 16:04:47 Brother Myocardial infarction 42 47 [email or web address] Not available 01/12 16:00:49 Brother Myocardial infarction 49 82 [email or web address] Not available 11/16 13:36:13 Brother Myocardial infarction 39 52 [email or web address] Not available 01/12 16:00:49 Brother Myocardial infarction 40 51 [email or web address] Not available 01/12 16:00:49 Brother Hypertensive disorder [email or web address] Not available 2024 13:36:13 Brother Hypertensive disorder [email or web address] Not available 2024 13:36:13 Brother Hypertensive disorder sluckett Not available 2024 13:36:13 Brother Hypertensive disorder sluckett Not available 2024 13:36:13 Brother Heart disease 39 52 [email or web address] Not available 2016 16:00:49 Brother Heart disease 42 47 [email or web address] Not available 2016 16:00:49 Brother Heart disease 40 51 [email or web address] Not available 2016 16:00:49 Paternal Grandfather Myocardial infarction 65 72 sluckett Not available 11/16 13:36:13 Paternal Grandfather Heart disease 65 [email or web address] Not available 2024 13:36:13 Maternal Grandfather Myocardial infarction 60 [email or web address] Not available 04/06 16:04:47 Maternal Grandfather Heart disease 60 [email or web address] Not available 2024 13:36:13 Paternal Grandmother Heart disease 70 [email or web address] Not available 2024 13:36:13 Paternal Grandmother Myocardial infarction 82 sluckett Not available 11/16 13:36:13 Medical History Condition Response Coronary Artery Disease N Gout N Thyroid Disease N Atrial Fibrillation N Kidney Stones N Hyperthyroidism N MRSA N Heart Arrhythmia Y COPD N Hypothyroidism N Lung Disease N Depression N Peripheral Arterial Disease N Pacemaker N Nervous Illness N Edema N Vascular Disease N Difficulty Swallowing N Meniere's disease N Anxiety Disorder N Obesity Y Arthritis Y Hiatal hernia Y Mental Disorder N Acid Reflux (GERD) Y Cancer N Stroke N History of Blood Thinners N Blood Thinners N Shortness of Breath N High Cholesterol Y Liver Disease N Arrhythmia Y Fibromyalgia N Kidney Disease N Endocrine Disorder N Allergies/Hayfever Y Heart Problems Y Heart Conditions Y Parkinson's Disease N Implanted Cardiac Device N Black Lung N Alzheimer's N Thyroid Problems N Anemia N MRSA exposure N Chest Pain Y Ulcers N Heart Attack ([place]) N Diabetes N Rheumatic Fever N Cardiomyopathy N Bleeding Disorder N Heart Murmur Y Tuberculosis N AIDS/HIV N Congestive Heart Failure (CHF) N Hyperlipidemia Y Diverticulitis Y Asthma N Cardiac Disease Y Peripheral Vascular Disease N Reflux/GERD Y Sleep Apnea N Jaundice N Warfarin Management N GERD/Reflux Y Heart Disease N Restless leg syndrome N Pulmonary Embolism N Hypertension Y Chronic Ear Infections N Osteoporosis Y Gynecological History Statement/Question Response Menses Monthly N If Post Menopausal, Age at Menopause 47 Date of Last Pap Smear 05/31/2017 Age at Menarche 47 Current Control Method None Age at First Child 24 Obstetrics History GPAL:G 0 P 0 0 0 0 Immunizations Vaccine Type Date Status Note Provider Nam e and Address Organization Details Recorded Time Influenza, split virus, quadrivalent, PF 8 completed Not Available Replaced by [facility] 07/08/2019 02:46:51 Hep A, adult 9 completed Not Available Replaced by [facility] 07/08/2019 02:47:47 Pneumococcal conjugate PCV 13 0 completed [facility] 06/05/2020 15:01:05 zoster recombinant 1 completed YASMINE KRISHNA MD [address] [place] [address], [phone], [facility] 08/30/2020 09:55:42 Pneumococcal conjugate PCV20, polysaccharide [id number] conjugate, adjuvant, PF 2 completed [facility] 03/23/2022 15:17:54 Influenza, split virus, quadrivalent, preservative 1 completed Not Available Replaced by [facility] 06/08/2023 14:21:52 Influenza, high-dose, trivalent, PF 4 completed [facility] 05/23/2024 15:49:44 zoster recombinant 0 completed [facility] 01/11/2023 08:49:00 COVID-19, mRNA, LNP-S, PF, 100 mcg/0.5mL dose or 50 mcg/0.25mL dose 1 completed [facility] 01/11/2023 08:49:00 COVID-19, mRNA, LNP-S, PF, 100 mcg/0.5mL dose or 50 mcg/0.25mL dose 1 completed [facility] 01/11/2023 08:49:00 Influenza, split virus, quadrivalent, PF 0 completed [facility] 01/11/2023 08:49:00 influenza, unspecified formulation 2 completed Not Available Replaced by [facility] 06/08/2023 14:21:52 Past Encounters Encounter ID Performer Location Encounter Start Date Encounter Closed Date Diagnosis/Indication Diagnosis SNOMED-CT Code Diagnosis ICD10 Code Diagnosis IMO Codes Diagnosis Note [id number] SRI NEWMAN MD INTERNAL MEDICINE [facility] CLOSED [address] [facility] [address] [place] [address] 1 10/05/2016 14:20:06 10/05/2016 15:29:42 Essential hypertension 84493235 I10 Hyperlipidemia 58729310 E78.5 Prinzmetal angina 730745 02 I20.1 Hyperglycemia 15845590 R 73.9 [id number] ESTRELLITA HASKINS PA-C CARDIOLOG Y [address] [place] [address] 10/07/2016 08:09:51 10/07/2016 12:48:52 Prinzmetal angina 97766552 I20.1 Essential hypertension 30566017 I10 Hyperlipidemia 05617780 E78.5 Anxiety 39452387 F41.9 Migraine 60820799 G43.90 9 [id number] LALY MARRUFO PA-C [facility] CLOS[facility] [place] [phone] 10/19/2016 17:43:55 10/20/2016 07:59:30 Scapulalgia 46685765 M89.8X1 Contusion of rib 0323029 06 S20.20XA Cough 77129169 R05 [id number] SRI NEWMAN MD INTERNAL MEDICINE [facility] CLOSED [address] [facility] [address] [place] [address] 01/12/2017 15:58:15 01/12/2017 16:39:37 Edema 351703290 R60.9 Dizziness 196274427 R42 Essential hypertension 09387207 I10 Fatigue 36026975 R53.83 [id number] SRI NEWMAN MD INTERNAL MEDICINE [facility] CLOSED [address] [facility] [address] [place] [address] 01/27/2017 15:51:07 01/27/2017 16:11:09 Essential hypertension 97849760 I10 Hyperlipidemia 00607023 E78.5 Edema 996369622 R60.9 [id number] TESFAYE BRENNAN PA-C [facility] [address] [place] [address] 02/02/2017 16:17:55 02/03/2017 07:44:41 Body mass index 30+ - obesity 071473952 Z68.30 Dyspnea 036529007 R06.00 Cough 30222609 R05 Prinzmetal angina 302724 02 I20.1 Atypical chest pain 1025 34568 R07.89 [id number] ESTRELLITA HASKINS PA-C CARDIOLOG Y [address] ,[address] [place] [id number] 04/06/2017 11:38:49 04/06/2017 16:26:23 Prinzmetal angina 15427419 I20.1 Essential hypertension 73906375 I10 Hyperlipidemia 37536374 E78.5 [id number] SRI NEWMAN MD INTERNAL MEDICINE [facility] CLOSED [address] [facility] [address] [place] [address] 04/06/2017 15:40:49 04/06/2017 16:34:08 Adult health examination 307057763 Z00.00 Essential hypertension 43051377 I10 Hyperlipidemia 45212571 E78.5 Hyperglycemia 19673252 R 73.9 Screening for malignant neoplasm of colon 550297933 Z12.11 Gastroesop hageal reflux disease without esophagitis 849546853 K21.9 Prinzmetal angina 095908 02 I20.1 [id number] SRI NEWMAN MD INTERNAL MEDICINE [facility] CLOSED [address] [facility] [address] 10/05/2017 15:41:06 10/05/2017 16:14:14 Essential hypertension 62019767 I10 Hyperlipidemia 61629848 E78.5 Anxiety disorder 7272543 06 F41.9 Hyperglycemia 10248838 R 73.9 Otitis media 51160074 H6 6.92 [id number] ESTRELLITA HASKINS PA-C CARDIOLOG Y [address] [place] [address] 05/16/2018 14:50:02 05/16/2018 15:26:00 Prinzmetal angina 38044823 I20.1 Essential hypertension 14670154 I10 Hyperlipidemia 58634300 E78.5 [id number] SRI NEWMAN MD INTERNAL MEDICINE [facility] CLOSED [address] [facility] [address] 05/23/2018 15:04:19 05/23/2018 15:42:35 Adult health examination 288537602 Z00.00 Essential hypertension 15267324 I10 Hyperlipidemia 51471368 E78.5 Hyperglycemia 21972757 R 73.9 Administra tion of influenza vaccine 39613213 Z23 [id number] STEPHANE QUEZADA PA-C [facility] [address] [place] [address] 08/31/2018 16:37:31 08/31/2018 19:16:46 Acute sinusitis 55354887 J01.90 [id number] SRI NEWMAN MD INTERNAL MEDICINE [facility] CLOSED [address] [facility] [address] [place], [place] [address] 01/03/2019 16:11:13 01/03/2019 16:45:11 Essential hypertension 31833292 I10 Hyperlipidemia 83311456 E78.5 Anxiety disorder 2367500 06 F41.9 Gastroesop hageal reflux disease without esophagitis 726826596 K21.9 Hyperglycemia 74135260 R 73.9 Medication monitoring 39 7430918 Z51.81 Fatigue 05275568 R53.83 Active or passive immunization 152947821 Z23 [id number] SRI NEWMAN MD INTERNAL MEDICINE [facility] CLOSED [address] [facility] [address] [address] 05/31/2019 10:20:26 05/31/2019 11:14:59 Essential hypertension 21898564 I10 Hyperlipidemia 14154574 E78.5 Anxiety disorder 6111974 06 F41.9 Gastroesop hageal reflux disease without esophagitis 946493562 K21.9 Long-term drug therapy 050403492 Z79.899 Educated a bout weight management 603375239 Z71.3 Adult heal th examination 148600052 Z00.00 Low back pain 110003993 M54.5 Urinary incontinence 165 384326 R32 [id number] ESTRELLITA HASKINS PA-C CARDIOLOG Y [address] [place] [address] 05/31/2019 14:09:31 06/01/2019 08:28:37 Prinzmetal angina 68370905 I20.1 Essential hypertension 42227297 I10 Hyperlipidemia 19459918 E78.5 [id number] ARCHIE HORVATH PA-C [facility] CLOSED [address] [place] [address] 06/07/2019 13:28:28 06/08/2019 15:47:34 Low back pain 231134264 M54.5 Urinary incontinence 165 984264 R32 [id number] SRI NEWMAN MD INTERNAL MEDICINE [facility] CLOSED [address] [place] [id number] 11/09/2019 10:37:47 11/09/2019 11:11:34 Dyspnea 117894124 R06.00 Suspected COVID-19 45504 4004 Z03.943 [id number] ESTRELLITA HASKINS PA-C CARDIOLOG Y [address] ,[address] [place] [address] 5 11/14/2019 14:17:13 11/14/2019 15:37:08 Prinzmetal angina 00594979 I20.1 Essential hypertension 95851470 I10 Hyperlipidemia 73344972 E78.5 [id number] SRI NEWMAN MD INTERNAL MEDICINE [facility] CLOSED [address] [place] [address] 11/21/2019 15:28:20 11/21/2019 16:13:42 Essential hypertension 44638012 I10 Hyperlipidemia 24712546 E78.5 Anxiety disorder 2751694 06 F41.9 Hyperglycemia 57503178 R 73.9 Educated a bout weight management 379269716 Z71.3 Fatigue 93553822 R53.83 Dysuria 44390103 R30.9 [id number] ESTRELLITA HASKINS PA-C CARDIOLOG Y [address] [place] [address] 05/21/2020 14:55:59 05/22/2020 07:55:03 Prinzmetal angina 48981867 I20.1 Essential hypertension 22641157 I10 Hyperlipidemia 11364820 E78.5 [id number] SRI NEWMAN MD INTERNAL MEDICINE [facility] CLOSED [address] [place] [address] 06/05/2020 14:26:56 06/05/2020 14:57:25 Adult health examination 132758249 Z00.00 Essential hypertension 79872404 I10 Hyperlipidemia 16200433 E78.5 Hyperglycemia 68392920 R 73.9 Educated a bout weight management 134492545 Z71.3 Menopausal syndrome 1237 16867 N95.9 Administra tion of pneumococcal vaccine 59159618 Z23 Screening for malignant neoplasm of colon 647795787 Z12.11 [id number] SRI NEWMAN MD INTERNAL MEDICINE [place] [address] 08/30/2020 08:09:10 08/30/2020 08:56:15 [id number] ESTRELLITA HASKINS PA-C CARDIOLOG Y [address] ,[address] [place] [address] 5 09/17/2020 14:29:25 09/17/2020 15:53:05 Prinzmetal angina 26912139 I20.1 I've encouraged increased exercise. Continue all same medication s Essential hypertension 82615425 I10 Hyperlipidemia 14410677 E78.5 [id number] SRI NEWMAN MD INTERNAL MEDICINE [place] [address] 12/16/2020 16:11:32 12/16/2020 16:32:26 Essential hypertension 63116579 I10 Hyperlipidemia 14615047 E78.5 Prinzmetal angina 151179 02 I20.1 Hyperglycemia 71588628 R 73.9 Fatigue 48068805 R53.83 Obesity 751336474 E66.9 [id number] ESTRELLITA HASKINS PA-C CARDIOLOG Y [address] ,[address] [place] [address] 5 05/27/2021 09:08:19 05/27/2021 10:51:11 Prinzmetal angina 05157043 I20.1 I've encouraged increased exercise. Continue all same medication s. Avoid caffeine and increase hydration Essential hypertension 43490927 I10 continue current dose of amlodipine and isosorbide . Encouraged low sodium diet increased exercise [id number] SRI NEWMAN MD INTERNAL MEDICINE [place] [address] 07/08/2021 12:35:36 07/08/2021 12:58:14 Upper respiratory infection 74708827 J06.9 [id number] SRI NEWMAN MD INTERNAL MEDICINE [address] [place] [address] 07/28/2021 09:05:33 07/28/2021 09:21:32 COVID-19 596383136 U07.1 [id number] JUANA AYALA PA-C [facility] [address] [place] [address] 10/15/2021 13:52:50 10/15/2021 15:59:25 Cellulitis of finger of left hand 1708239577 7168041 L03.012 Open wound of left hand due to cat bite 6006723242 0009184 S61.452A [id number] ROSARIO WATTS PA-C ORTHOPEDI [facility] CL[facility] [address] [place] [address] 10/15/2021 15:50:30 10/15/2021 16:57:59 Cat bite - wound 050164526 T14.8XXA Flexor tenosynovi tis left index finger [id number] IRASEMA CASTRO MD SURGERY SCHEDULE [address] [place] [address] 10/16/2021 10:29:21 10/16/2021 10:30:22 [id number] PAULINA PEREIRA OTR/L, CHT PHYSICAL THERAPY / HAND THERAPY [facility] CLOSED [address] [address] 10/20/2021 08:14:13 10/20/2021 15:06:00 Open wound of left hand due to cat bite [id number] S61.452D I and D [id number] PAULINA PEREIRA OTR/L, CHT PHYSICAL THERAPY / HAND THERAPY [facility] CLOSED [address] [address] 10/21/2021 14:49:24 10/22/2021 08:16:01 Open wound of left hand due to cat bite 1128796784 [id number] S61.452D I and D [id number] IRASEMA CASTRO MD [facility] CLOSED [address] [place] [address] 10/22/2021 13:55:07 10/22/2021 14:27:49 Cat bite - wound 099326253 T14.8XXA 6 days status post I&D abscess/fl exor tenosynovi tis left index finger, continue daily dressing changes, she may be instructed to do these at home, therapy as needed, follow-up 1 week wound check and range of motion check [id number] ANDIE ADAMS/L, CHT PHYSICAL THERAPY / HAND THERAPY [facility] CLOS[facility] [place] [place] [address] 10/22/2021 14:53:54 10/22/2021 16:05:46 Open wound of left hand due to cat bite [id number] [id number] S61.452D I and D [id number] ANDIE ADAMS/Jonnathan, CHT PHYSICAL THERAPY / HAND THERAPY [facility] CLOS[facility] [place] [address] 10/23/2021 08:28:41 10/23/2021 14:50:36 Open wound of left hand due to cat bite 7714985006 [id number] S61.452D I and D [id number] ANDIE ADAMS/Jonnathan, CHT PHYSICAL THERAPY / HAND THERAPY [facility] [place] [address] 6 10/24/2021 15:02:30 10/24/2021 15:54:17 Open wound of left hand due to cat bite 3722363798 [id number] S61.452D I and D [id number] ANDIE ADAMS/Jonnathan, CHT PHYSICAL THERAPY / HAND THERAPY [facility] CLOS[facility] [place] [address] 6 10/27/2021 08:31:22 10/27/2021 13:20:23 Open wound of left hand due to cat bite 1891883816 [id number] S61.452D I and D [id number] ANDIE ADAMS/L, CHT PHYSICAL THERAPY / HAND THERAPY [facility]OS[facility] [place] [address] 6 10/29/2021 11:12:10 10/29/2021 13:23:59 Open wound of left hand due to cat bite 8768765376 [id number] S61.452D I and D [id number] ROSARIO WATTS PA-C ORTHOPEDI CS [facility] CLOS[facility] [address] [place] [address] 10/29/2021 11:33:15 10/29/2021 12:01:36 Cat bite - wound 223562185 T14.8XXA Doing well status post I&D, 13 days out. [id number] PAULINA PEREIRA OTR/L, CHT PHYSICAL THERAPY / HAND THERAPY [facility] [address] [place] [address] 10/31/2021 09:02:49 11/03/2021 10:24:46 Open wound of left hand due to cat bite [id number] S61.452D I and D [id number] ANDIE ADAMS/L, CHT PHYSICAL THERAPY / HAND THERAPY [facility] [address] [place] [address] 11/05/2021 10:00:50 11/05/2021 16:25:20 Open wound of left hand due to cat bite [id number] S61.452D I and D [id number] ROSARIO WATTS PA-C ORTHOPEDI [facility] [address] [place] [address] 11/05/2021 11:08:30 11/05/2021 11:29:22 Cat bite - wound [id number] T14.8XXA Doing well status post I&D, 3 weeks out. [id number] PAULINA PEREIRA OTR/L, CHT PHYSICAL THERAPY / HAND THERAPY [facility] [address] [place] [address] 11/07/2021 08:43:47 11/07/2021 14:12:16 Open wound of left hand due to cat bite [id number] S61.452D I and D [id number] ANDIE ADAMS/L, CHT PHYSICAL THERAPY / HAND THERAPY [facility] [address] [place] [address] 11/10/2021 14:03:48 11/11/2021 08:42:54 Open wound of left hand due to cat bite [id number] S61.452D I and D [id number] PAULINA PEREIRA OTR/L, CHT PHYSICAL THERAPY / HAND THERAPY [facility] [address] [place] [address] 6 11/12/2021 13:16:53 11/12/2021 16:18:40 Open wound of left hand due to cat bite [id number] S61.452D I and D [id number] PAULINA PEREIRA OTR/L, CHT PHYSICAL THERAPY / HAND THERAPY [facility] [address] [place] [address] 6 11/19/2021 13:23:51 11/19/2021 14:44:37 Open wound of left hand due to cat bite [id number] S61.452D I and D [id number] PAULINA PEREIRA OTR/L, T PHYSICAL THERAPY / HAND THERAPY [facility] [address] [place] [address] 6 11/24/2021 14:41:53 11/25/2021 09:02:27 Open wound of left hand due to cat bite [id number] S61.452D I and D [id number] PAULINA PEREIRA OTR/L, T PHYSICAL THERAPY / HAND THERAPY [facility] [address] [place], [place] [address] [place] [address] 6 12/01/2021 14:12:05 12/01/2021 15:59:42 Open wound of left hand due to cat bite [id number] S61.452D I and D [id number] PAULINA PEREIRA OTR/L, CHT PHYSICAL THERAPY / HAND THERAPY [facility] [address] [place] [address] 6 12/08/2021 09:08:18 12/08/2021 13:38:04 Open wound of left hand due to cat bite [id number] S61.452D I and D [id number] ROSARIO WATTS PA-C ORTHOPEDI [facility] [address] [place] [address] 6 12/08/2021 10:03:21 12/08/2021 10:29:11 Cat bite - wound 755184481 T14.8XXA Recovering well from cat bite and irrigation and debridemen t of the left index finger. [id number] ESTRELLITA HASKINS PA-C CARDIOLOG Y [address] [place] [address] 12/08/2021 13:48:51 12/08/2021 14:48:44 Overweight 796469033 E66.3 Prinzmetal angina 326145 02 I20.1 I've encouraged increased exercise. Continue all same medication s. Avoid caffeine and increase hydration Essential hypertension 23055867 I10 continue current dose of amlodipine and isosorbide . Encouraged low sodium diet increased exercise [id number] PAULINA PEREIRA, OTR/L, CHT PHYSICAL THERAPY / HAND THERAPY [facility] [address] [place] [address] 12/15/2021 14:10:20 12/15/2021 15:50:15 Open wound of left hand due to cat bite [id number] S61.452D I and D [id number] PAULINA PEREIRA OTR/L, CHT PHYSICAL THERAPY / HAND THERAPY [facility] [address] [place] [address] 12/24/2021 14:06:11 12/24/2021 16:19:49 Open wound of left hand due to cat bite [id number] S61.452D I and D [id number] SRI NEWMAN MD INTERNAL MEDICINE [address] [place] [address] 03/23/2022 14:38:05 03/23/2022 15:18:30 Adult health examination 988968665 Z00.00 Essential hypertension 32329258 I10 Hyperlipidemia 58241400 E78.5 Gastroesop hageal reflux disease without esophagitis 240058935 K21.9 Hyperglycemia 41890373 R 73.9 Long-term drug therapy 194572666 Z79.899 Overweight 265928055 E66 .3 Screening for malignant neoplasm of breast 961732746 Z12.31 Menopausal syndrome 1237 33760 N95.9 Administra tion of pneumococcal vaccine 40701347 Z23 [id number] PJ REEVES MD BONE DENSITY [address] [place] [address] 06/02/2022 12:27:52 06/02/2022 13:11:37 Osteopenia 772086537 M85.89 [id number] ESTRELLITA HASKINS PA-C CARDIOLOG Y [facility] [address] [place] [address] 06/30/2022 13:31:26 06/30/2022 13:58:42 Overweight 802357800 E66.3 Prinzmetal angina 140053 02 I20.1 I've encouraged increased exercise. Continue all same medication s. Avoid caffeine and increase hydration Essential hypertension 88626682 I10 continue current dose of amlodipine and isosorbide . Encouraged low sodium diet increased exercise [id number] SRI NEWMAN MD INTERNAL MEDICINE [address] [address] 01/13/2023 15:10:25 01/14/2023 04:20:08 Essential hypertension 74457888 I10 Hyperlipidemia 58108672 E78.5 Gastroesop hageal reflux disease without esophagitis 317981116 K21.9 Prinzmetal angina 647747 02 I20.1 stablecont inue current medication continue to monitorfol low up with cardiology Hyperglycemia 00756887 R 73.9 Long-term drug therapy 587386597 Z79.899 Fatigue 14353330 R53.83 [id number] SRI NEWMAN MD INTERNAL MEDICINE SB [address] [place] [address] 06/08/2023 14:20:26 06/10/2023 10:10:21 Adult health examination 009199616 Z00.00 Essential hypertension 33999922 I10 Hyperlipidemia 12031792 E78.5 Hyperglycemia 32150226 R 73.9 Gastroesop hageal reflux disease without esophagitis 919329272 K21.9 Fatigue 31938374 R53.83 [id number] KELLY NEWMAN MD OBGYN [facility] [address] [place] [address] 10/22/2023 09:06:54 10/22/2023 10:01:39 Urge incontinence of urine 67559173 N39.41 going to try the Mrybetriq first. discussed other treatment optoins. botox .neuromodu lation. etc. pamphlet given. education 30 britt f 45 min appt.monikao w up 6 months. Atrophic vaginitis 87062 000 N95.2 [id number] SRI NEWMAN MD INTERNAL MEDICINE [address] [place] [address] 02/22/2024 14:05:14 02/23/2024 10:02:06 Essential hypertension 57485564 I10 Hyperlipidemia 74694367 E78.5 Hyperglycemia 65167824 R 73.9 Gastroesop hageal reflux disease without esophagitis 408568747 K21.9 Long-term drug therapy 172045873 Z79.899 Fatigue 14226722 R53.83 Prinzmetal angina 057262 02 I20.1 stablecont inue current medication continue to monitorfol low up with cardiology Right lowe r quadrant pain 444395972 R10.31 [id number] KELLY NEWMAN MD OBGYN [facility] [address] [place] [address] 03/27/2024 10:00:03 03/27/2024 10:29:19 Urge incontinence of urine 54005141 N39.41 myrbetriq was not covered. tried the oxybutynin 5 mg and with little side effects. So she may try addiing the estrgoen cream and also doubling up on the oxybutynin to 10 mg. [id number] REESE SALAS PA-C ORTHOPEDI [facility] [address] [address] 04/19/2024 16:54:07 04/21/2024 04:26:02 Stress fracture of neck of left femur 0741818916 1323396 M84.352A Concerns for femoral neck stress fracture of the left hip. Order MRI of the left hip without contrast. Follow-up with me after MRI to discuss definitive treatment options. Touchdown weightbear ing left lower extremity with walker. Osteoarthr itis of right hip joint 0776224530 46675 M16.11 Mild to moderate right hip osteoarthr itis. Likely minimal to conservati ve care for now. Will further discuss after evaluation of left hip for stress fracture. [id number] REESE SALAS PA-C ORTHOPEDI [facility] [address] [place] [address] 04/21/2024 15:45:57 04/21/2024 16:04:00 Osteoarthritis of bilateral hip joints 7157450581 88227 M16.0 M70.60 Overall negative MRI outside of degenerati ve changes in the left hip. We will do a Medrol Dosepak to help with acute inflammati on, get her started with physical therapy to help with mobility and strengthen ing gluteal region. Consider intra-coral cular CSI if symptoms fail to improve. Follow-up me in 6 weeks. Patient in agreement with this plan. [id number] SRI NEWMAN MD INTERNAL MEDICINE [address] [place] [address] 05/23/2024 15:21:21 05/29/2024 10:04:01 Adult health examination 437934482 Z00.00 Essential hypertension 56317317 I10 Hyperlipidemia 72553679 E78.5 Hyperglycemia 07482614 R 73.9 Gastroesop hageal reflux disease without esophagitis 395418980 K21.9 Prinzmetal angina 178244 02 I20.1 stablecont inue current medication continue to monitorfol low up with cardiology Long-term drug therapy 827396238 Z79.899 Menopausal syndrome 1237 59495 N95.9 Screening for malignant neoplasm of breast 934977803 Z12.31 Administra tion of influenza vaccine 61626248 Z23 [id number] PJ REEVES MD BONE DENSITY [address] [place] [address] 07/31/2024 10:16:30 07/31/2024 10:31:31 Osteoporosis 04001331 M81.0 [id number] DAVID HANKINS APRN CARDIOLOG Y EAST [address] [place], [place] [address] [place] [address] 08/01/2024 19:56:04 08/07/2024 06:41:45 Overweight 176718957 E66.3 Discussed importance of maintainin g healthy weight, increasing aerobic exercise. Goal 120-150 min per week. 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 Essential hypertension 51146140 I10 continue current dose of amlodipine and isosorbide . Encouraged low sodium diet increased exercise Hyperlipidemia 70285961 E78.5 lipid panel: 02/17/2024: HDL 44, TG 86, Total 173, LDL 112Patient is on statin therapy.Co unseled on low cholestero l/low fat diet. [id number] MANDA DUNLAP MD HEART STATION [address] [place] [address] 09/04/2024 08:49:37 09/05/2024 08:42:05 [id number] DAVID HANKINS APRN CARDIOLOG Y [address] [place] [address] 11/16/2024 13:36:08 11/16/2024 14:25:59 Prinzmetal angina 08445444 I20.1 Historical ly managed with isosorbide and amlodipine .BB has resulted in bradycardi a and excessive fatigue.Co ntinue ranolazine .She does have Hx of non-obs CAD per prior catheteriz ation in the pastLexisc an done 09/04/2024 without ischemia.C ontinue with annual follow up for ongoing management Overweight 963618866 E66 .3 Discussed importance of maintainin g healthy weight, increasing aerobic exercise. Goal 120-150 min per week. Essential hypertension 60207177 I10 continue current dose of amlodipine . Encouraged low sodium diet increased exercise Hyperlipidemia 65692315 E78.5 lipid panel: 02/17/2024: HDL 44, TG 86, Total 173, LDL 112Patient is on statin therapy.Co unseled on low cholestero l/low fat diet. [id number] SRI NEWMAN MD INTERNAL MEDICINE [address] [place] [address] 01/01/2025 13:12:36 01/02/2025 04:37:25 Essential hypertension 47418342 I10 144828 Hyperlipidemia 26099861 E78.5 24504 Hyperglycemia 55437628 R 73.9 32033 Gastroesop hageal reflux disease without esophagitis 201984458 K21.9 086867 Prinzmetal angina 147962 02 I20.1 3486 stablecont inue current medication continue to monitorfol low up with cardiology Long-term current use of drug therapy 613888583 Z79.899 34189074 Fatigue 50902135 R53.83 6899476 Congestive heart failure 15946959 I50.9 474754 stablecont inue current medication continue to monitorfol low up with cardiology Health Concerns Section Related Observation LastModified by Organization Detai ls LastModified Time None Recorded Concern Status LastModified by Organization Details LastModified Time None Recorded Advance Directives Directive None Recorded Payers Insurance Date Sequence Insurance Name Policy Number Policy Enriquez Covered Member ID Enriquez Member ID Guarantor Name 01/07/2023 1 [facility] [id number] Sandie Jonnathan Phan [id number] Sandie Jonnathan Chisholm 05/23/2024 2 [facility] (MEDICARE SUPPLEMENT) Sandie L Phan [id number] Sandie L Phan 12/29/2024 1 [place] Sandie L Phan [id number] Sandie Jonnathan Chisholm 01/07/2023 3 [employer] (POS) [id number] Sandie L Phan [id number] Sandie L Phan 05/23/2024 2 [facility] (MEDICARE SUPPLEMENT) Sandie L Phan [id number] Sandie Chisholm 04/19/2024 PAYMENT PLAN Sandie Jonnathan Chisholm 02/06/2022 PAYMENT PLAN Sandie Jonnathan Chisholm Notes Date Note Type Note Provider Name and Address Organization Details Recorded Time 5 text/html ROS as noted in the HPI is a very pleasant, 69 y.o. pt w/ a PMHx of vasospastic angina, hypertension, hyperlipidemia, chronic anxiety, history of migraines, severe esophagitis and gastritis with prior history of Venu fundoplication who is here today for routine follow/up . P angelic was previously followed at [facility] prior to 2016. She's had 2 separate cardiac catheterizations which have shown minor nonobstructive CAD. She had a nuclear GXT October 2015 which was negative for ischemia with normal LV function. Echocardiograms have shown mild wilson valvular regurgitation but have otherwise been unremarkable with normal LV function. She was last seen by Estrellita Haskins PA-C 06/2022 Returns today for recheck and EKGPt reports seeing PT for balance and shoulder ROM.She has chronic recurring chest discomfort, uses SL NTG PRN. She no longer takes isosorbide. Has continued with amlodipine.She has daytime fatigue.Reported intolerance to BB: resulted in bradycardia with associated symptoms of fatigue No recent cardiovascular testing.She reports no orthopnea, PND, syncope, LE edema. DAVID HANKINS, MACHINE III COREMAKER [address] [place], [address], [facility] 08/01/2024 20:29:09 5 text/html ROS as noted in the HPI is a very pleasant, 69 y.o. pt w/ a PMHx of vasospastic angina, hypertension, hyperlipidemia, chronic anxiety, history of migraines, severe esophagitis and gastritis with prior history of Venu fundoplication. Lisa atwood was previously followed at [facility] prior to 2016. She's had 2 separate cardiac catheterizations which have shown minor nonobstructive CAD. She had a nuclear GXT October 2015 which was negative for ischemia with normal LV function. Echocardiograms have shown mild wilson valvular regurgitation but have otherwise been unremarkable with normal LV function. Lexiscan 09/04/2024Impression:1. Normal myocardial perfusion at rest and stress.2. LVEF=82%, with normal regional wall motion.3. No significant EKG changes noted during this study. Echocardigoram 09/04/2024LVEF 50-60%, no regional WMAMild AIAscending aorta dilation 3.3cmMild concentric LVH with biatrial enlargement Here today for follow upShe reports she is feeling well from cardiac standpoint. No recent illness/hospitalization. Compliant with medications. Denies CP, SOA/COFFMAN. No orthopnea, PND. No palpitations, syncope/near-syncope, LE edema.BP is elevated today, but normally well-controlled at home. DAVID RODAS LILO, MACHINE III COREMAKER [address] [place], [address], [facility] 11/17/2024 06:29:30 5 text/html Hypertension is chronic, ongoing, stableHyperlipidemia is chronic, ongoing, stableGERD is chronic, ongoing, stableShe has had the problems for year SRI NEWMAN MD [address] [place], [address], [facility] 01/01/2025 13:34:15 OBGyn Episode No OBEpisode recorded.
== END 2025-05-24 23:59 | disposition home or self-care (01) ==
LOC: LAB.DROPOF 05-27 13:40
PROVIDERS: PCP Internal Medicine; Visit Provider Student in an Organized Health Care Education/Training Program
DX: J06.9 Acute upper respiratory infection, unspecified (principal); R50.9 Fever, unspecified
CPT/HCPCS: 87636